=== PATIENT | female | born 1990 | race American Indian/Alaskan Native ===

== ENCOUNTER 2020-06-14 13:03 | Inpatient (IN) | payer BC, OTHER ==
[2020-06-14] MEDS ORDERED: SODIUM CHLORIDE 0.9% 1000 ML 1,000 ML ONE (13:14)
[2020-06-14] MEDS ORDERED: SODIUM CHLORIDE 0.9% 1000 ML 1,000 ML IV ONE ×3 (13:15→14:34)
--- NOTE | 2020-06-14 13:20 | Emergency Department Report ---
ED General Adult HPI - General Chief complaint: Altered Mental Status Stated complaint: AMS Time Seen by Provider: 06/14/20 13:15 Source: EMS Mode of arrival: Stretcher Limitations: Altered Mental Status - History of Present Illness Initial comments: Patient is a 30-year-old female who presents somnolent and unable to contribute to history secondary to clinical status. Per medics, patient has been feeling unwell times several days, was evaluated at [facility] and told she had diabetes (patient did not have history of same). Patient significant other reported patient to be less responsive today and called ambulance who noted patient to be hyperglycemic. Patient arrives in severe distress, with altered mental status, consequently requiring my immediate attention. - Related Data Allergies Allergy/AdvReac Type Severity Reaction Status Date / Time No Known Allergies Allergy Unverified 06/14/20 13:54 ED Review of Systems ROS: Stated complaint: AMS Other details as noted in HPI Comment: Unobtainable due to pts medical conditions ED Past Medical Hx - Past Medical History Previous Medical History?: Yes Hx Diabetes: Yes Hx Asthma: Yes ED Physical Exam - General Limitations: Altered Mental Status General appearance: in distress - Eye Eye exam: Present: normal appearance - ENT ENT exam: Present: mucous membranes dry - Neck Neck exam: Present: normal inspection - Respiratory Respiratory exam: Present: normal lung sounds bilaterally - Cardiovascular Cardiovascular Exam: Present: tachycardia - GI/Abdominal GI/Abdominal exam: Present: soft. Absent: tenderness - Rectal Rectal exam: Present: deferred - Extremities Exam Extremities exam: Present: normal inspection - Neurological Exam Neurological exam: Present: altered, other (Somnolent). Absent: alert - Psychiatric Psychiatric exam: Present: other (Somnolent) - Skin Skin exam: Present: dry ED Course Vital Signs 06/14/20 06/14/20 13:14 14:24 Temperature 97.5 F L Pulse Rate 99 H Respiratory 14 Rate Blood Pressure 101/55 [Right] O2 Sat by Pulse 97 Oximetry - Reevaluation(s) Reevaluation #1: 06/14/20 13:20 Patient initially treated with IV normal saline 2 L x 1 Reevaluation #2: 06/14/20 15:27 Patient reevaluated following 2 L IV normal saline, still somnolent, however, significantly more alert, now awake able to give history. Patient remains hyperglycemic with unreadable high value on blood glucose monitor, given additional 1 L IV normal saline x1, insulin regular 10 units IV x1. Reevaluation #3: 06/14/20 16:44 BG again noted to be "HI," given additional IV regular insulin 10U. IV insulin drip ordered by admitting physician. ED Medical Decision Making - Lab Data Result diagrams: 06/14/20 13:17 06/14/20 15:43 Labs 06/14/20 06/14/20 06/14/20 13:13 13:13 13:13 WBC RBC Hgb Hct MCV MCH MCHC RDW Plt Count Lymph % (Auto) [place] % (Auto) Eos % (Auto) Baso % (Auto) Lymph # (Auto) [place] # (Auto) Eos # (Auto) Baso # (Auto) Seg Neutrophils % Seg Neutrophils # VBG pH Lactic Acid 2.40 H* Magnesium Lipase TSH 2.720 Salicylates < 0.3 L Acetaminophen Plasma/Serum Alcohol 06/14/20 06/14/20 06/14/20 13:13 13:13 13:13 WBC RBC Hgb Hct MCV MCH MCHC RDW Plt Count Lymph % (Auto) [place] % (Auto) Eos % (Auto) Baso % (Auto) Lymph # (Auto) [place] # (Auto) Eos # (Auto) Baso # (Auto) Seg Neutrophils % Seg Neutrophils # VBG pH 7.125 L* Lactic Acid Magnesium Lipase TSH Salicylates Acetaminophen 5.0 L Plasma/Serum Alcohol < 0.01 06/14/20 06/14/20 13:13 13:17 WBC 10.3 RBC 4.77 Hgb 13.9 Hct 54.3 H MCV 114 H MCH 29 MCHC 26 L RDW 15.6 H Plt Count 389 Lymph % (Auto) 6.8 L [place] % (Auto) 12.6 H Eos % (Auto) 0.0 Baso % (Auto) 0.2 Lymph # (Auto) 0.7 L [place] # (Auto) 1.3 H Eos # (Auto) 0.0 Baso # (Auto) 0.0 Seg Neutrophils % 80.4 H Seg Neutrophils # 8.3 H VBG pH Lactic Acid Magnesium 3.60 H Lipase 35 TSH Salicylates Acetaminophen Plasma/Serum Alcohol Vital Signs 06/14/20 06/14/20 13:14 14:24 Temperature 97.5 F L Pulse Rate 99 H Respiratory 14 Rate Blood Pressure 101/55 [Right] O2 Sat by Pulse 97 Oximetry Labs 06/14/20 06/14/20 06/14/20 13:13 13:13 13:13 WBC RBC Hgb Hct MCV MCH MCHC RDW Plt Count Lymph % (Auto) [place] % (Auto) Eos % (Auto) Baso % (Auto) Lymph # (Auto) [place] # (Auto) Eos # (Auto) Baso # (Auto) Seg Neutrophils % Seg Neutrophils # VBG pH Lactic Acid 2.40 H* Magnesium Lipase TSH 2.720 Salicylates < 0.3 L Acetaminophen Plasma/Serum Alcohol 06/14/20 06/14/20 06/14/20 13:13 13:13 13:13 WBC RBC Hgb Hct MCV MCH MCHC RDW Plt Count Lymph % (Auto) [place] % (Auto) Eos % (Auto) Baso % (Auto) Lymph # (Auto) [place] # (Auto) Eos # (Auto) Baso # (Auto) Seg Neutrophils % Seg Neutrophils # VBG pH 7.125 L* Lactic Acid Magnesium Lipase TSH Salicylates Acetaminophen 5.0 L Plasma/Serum Alcohol < 0.01 06/14/20 06/14/20 13:13 13:17 WBC 10.3 RBC 4.77 Hgb 13.9 Hct 54.3 H MCV 114 H MCH 29 MCHC 26 L RDW 15.6 H Plt Count 389 Lymph % (Auto) 6.8 L [place] % (Auto) 12.6 H Eos % (Auto) 0.0 Baso % (Auto) 0.2 Lymph # (Auto) 0.7 L [place] # (Auto) 1.3 H Eos # (Auto) 0.0 Baso # (Auto) 0.0 Seg Neutrophils % 80.4 H Seg Neutrophils # 8.3 H VBG pH Lactic Acid Magnesium 3.60 H Lipase 35 TSH Salicylates Acetaminophen Plasma/Serum Alcohol - EKG Data -: EKG Interpreted by Me (Sinus rhythm at 94, no ST-T changes, nonspecific IVCD) - Radiology Data Radiology results: report reviewed Findings [facility] [address] [place] [address] XRay Report Signed Patient: MARLEY MINOR MR#: [id number] : 1990 Acct:[id number] Age/Sex: 30 / F ADM Date: 06/14/20 Loc: CC1 [id number]: ROMARIO ROBLES MD Ordering Physician: YARA MEJIA MD Date of Service: 06/14/20 Procedure(s): XR chest 1V ap Accession Number(s): [id number] cc: YARA MEJIA MD Fluoro Time In Minutes: CHEST 1 VIEW 06/14/2020 3:26 PM INDICATION / CLINICAL INFORMATION: weakness. COMPARISON: None available. FINDINGS: SUPPORT DEVICES: None. HEART / MEDIASTINUM: No significant abnormality. LUNGS / PLEURA: Clear lungs. No significant pleural effusion. No pneumothorax. ADDITIONAL FINDINGS: No significant additional findings. IMPRESSION: 1. No acute abnormality of the chest. Signer Name: Perry Vincent MD Signed: 06/14/2020 4:29 PM Workstation Name: [id number] Transcribed By: YOANA Dictated By: Perry Vincent MD Electronically Authenticated By: Perry Vincent MD Signed Date/Time: 06/14/201628 DD/ 28 TD/TT: Critical Care Time: Yes Critical care time in (mins) excluding proc time.: 35 (Admitted to ICU) Critical care attestation.: If time is entered above; I have spent that time in minutes in the direct care of this critically ill patient, excluding procedure time. ED Disposition Clinical Impression: DKA (diabetic ketoacidosis) Disposition: OP ADMIT IP TO THIS HOSP Is pt being admited?: Yes Condition: Good
[2020-06-14 13:38] LABS: Basophils % (Auto) 0.2 % (0.0-1.8); Lymphocytes # (Auto) 0.7 K/mm3 (1.2-5.4); Lymphocytes % (Auto) 6.8 % (13.4-35.0); Mean Corpuscular HGB Conc 26 % (30-34); Monocytes # (Auto) 1.3 K/mm3 (0.0-0.8); Monocytes % (Auto) 12.6 % (0.0-7.3); Platelet Count 389 K/mm3 (140-440); Red Blood Count 4.77 M/mm3 (3.65-5.03); Red Cell Distribution Width 15.6 % (13.2-15.2)
[2020-06-14 13:41] LABS: Hemoglobin 13.9 gm/dl (10.1-14.3)
[2020-06-14 13:42] LABS: Hematocrit 54.3 % (30.3-42.9); Mean Corpuscular Volume 114 fl (79-97)
[2020-06-14] MEDS ORDERED: INSULIN REGULAR, HUMAN 100 UNITS/1 ML IV ONE ×2 (14:34→16:39)
[2020-06-14] MEDS ORDERED: DEXTROSE 50% IN WATER (25GM) 50 ML SYRINGE IV PRN (15:47)
[2020-06-14] MEDS ORDERED: MORPHINE 2 MG/1 ML INJ IV PRN (15:47)
[2020-06-14] MEDS ORDERED: D5W/0.45% NACL/KCL 20 MEQ 20 MEQ/1,000 ML BAG IV SCH (16:00)
--- NOTE | 2020-06-14 16:06 | History and Physical Report ---
History of Present Illness Date of examination: 06/14/20 Date of admission: 06/14/20 14:32 Chief complaint: Altered mental status History of present illness: 30-year-old -[place] female with significant past medical history of asthma brought into the emergency room today via EMS for altered mental status. Patient was said to be at [facility] where she had gone for evaluation because she was not feeling well over the past several days, she was found to be less responsive today and therefore EMS was called. Blood sugar done after was found to be elevated. She denies any history of diabetes mellitus. She was quite somnolent upon arrival in the emergency room. Work-up reveals that patient is in DKA. Liver enzymes and lipid profile were also abnormally elevated. She became more alert and oriented upon administration of IV fluid and insulin drip. Past History Past Medical History: other (Asthma) Past Surgical History: No surgical history Social history: no significant social history Family history: no significant family history Medications and Allergies Allergies Allergy/AdvReac Type Severity Reaction Status Date / Time No Known Allergies Allergy Unverified 06/14/20 13:54 Home Medications Medication Instructions Recorded Confirmed Last Taken Type Albuterol Mdi (or & Nicu Only) 2 puff PO Q6HR PRN 06/14/20 06/14/20 Unknown History [ProAir HFA Inhaler] Fluticasone/Vilanterol [Breo 1 puff INHALATION QDAY 06/14/20 06/14/20 Unknown History Ellipta 200-25 Mcg INH] HYDROcodone/ACETAMINOPHEN 1 each PO Q8HR PRN 06/14/20 06/14/20 Unknown History [Hydrocodone-Acetamin 7.5-300] Active Meds: Active Medications Dextrose (Dextrose 50% In Water (25gm) 50 Ml Syringe) 0 ml IV Q30MIN PRN; Protocol PRN Reason: Hypoglycemia Enoxaparin Sodium (Enoxaparin 40 Mg/0.4 Ml Inj) 40 mg SUB-Q QDAY@2200 ARMAND; Protocol Insulin Human Regular 100 (units/ Sodium Chloride) 100 mls @ 1 mls/hr IV TITR ARMAND; Protocol Sodium Chloride (Nacl 0.9% 1000 Ml) 1,000 mls @ 150 mls/hr IV DIRECT ARMAND Potassium Chloride/Dextrose/Sod Cl (D5w/0.45% Nacl/Kcl 20 Meq) 20 meq in 1,000 mls @ 125 mls/hr IV DIRECT ARMAND Morphine Sulfate (Morphine 2 Mg/1 Ml Inj) 2 mg IV Q4H PRN PRN Reason: Pain, Moderate (4-6) Ondansetron HCl (Ondansetron 4 Mg/2 Ml Inj) 4 mg IV Q8H PRN PRN Reason: Nausea And Vomiting Sodium Chloride (Sodium Chloride 0.9% 10 Ml Flush Syringe) 10 ml IV BID ARMAND Sodium Chloride (Sodium Chloride 0.9% 10 Ml Flush Syringe) 10 ml IV PRN PRN PRN Reason: LINE FLUSH Review of Systems Constitutional: lethargy, no fever, no chills Ears, nose, mouth and throat: no nasal congestion, no sore throat Cardiovascular: no chest pain, no palpitations Respiratory: no cough, no shortness of breath Gastrointestinal: no abdominal pain, no nausea, no vomiting, no diarrhea Genitourinary Female: no flank pain, no dysuria, no hematuria Musculoskeletal: no neck pain, no low back pain Integumentary: no rash, no pruritis Neurological: no headaches, no confusion Psychiatric: no anxiety, no depression Endocrine: no polyphagia, no polydipsia, no polyuria, no nocturia, no weight change Exam - Constitutional Vitals: Temp Pulse Resp BP Pulse Ox 97.5 F L 99 H 14 101/55 97 06/14/20 14:24 06/14/20 13:14 06/14/20 13:14 06/14/20 13:14 06/14/20 13:14 General appearance: Present: no acute distress, well-nourished, obese - EENT Eyes: Present: PERRL, EOM intact. Absent: scleral icterus ENT: hearing intact, clear oral mucosa, dentition normal - Neck Neck: Present: supple, normal ROM - Respiratory Respiratory effort: normal Respiratory: bilateral: CTA - Cardiovascular Rhythm: regular Heart Sounds: Present: S1 & S2. Absent: gallop, systolic murmur, diastolic murmur, rub, click - Extremities Extremities: no ischemia, pulses intact, pulses symmetrical, No edema, Full ROM Peripheral Pulses: within normal limits - Abdominal General gastrointestinal: Present: soft, non-tender, non-distended, normal bowel sounds. Absent: mass - Integumentary Integumentary: Present: clear, warm, dry. Absent: rash - Musculoskeletal Musculoskeletal: strength equal bilaterally - Psychiatric Psychiatric: appropriate mood/affect, intact judgment & insight, memory intact, cooperative - Neurologic Neurologic: CNII-XII intact, no focal deficits, moves all extremities Results - Labs CBC & Chem 7: 06/14/20 13:17 06/14/20 15:43 Labs: Abnormal lab results 06/14/20 06/14/20 06/14/20 Range/Units 13:13 13:13 13:13 Hct (30.3-42.9) % MCV (79-97) fl MCHC (30-34) % RDW (13.2-15.2) % Lymph % (Auto) (13.4-35.0) % [place] % (Auto) (0.0-7.3) % Lymph # (Auto) (1.2-5.4) K/mm3 [place] # (Auto) (0.0-0.8) K/mm3 Seg Neutrophils % (40.0-70.0) % Seg Neutrophils # (1.8-7.7) K/mm3 VBG pH (7.320-7.420) Lactic Acid 2.40 H* (0.7-2.0) mmol/L Magnesium (1.7-2.3) mg/dL Salicylates < 0.3 L (2.8-20.0) mg/dL Acetaminophen 5.0 L (10.0-30.0) ug/mL 06/14/20 06/14/20 06/14/20 Range/Units 13:13 13:13 13:17 Hct 54.3 H (30.3-42.9) % MCV 114 H (79-97) fl MCHC 26 L (30-34) % RDW 15.6 H (13.2-15.2) % Lymph % (Auto) 6.8 L (13.4-35.0) % [place] % (Auto) 12.6 H (0.0-7.3) % Lymph # (Auto) 0.7 L (1.2-5.4) K/mm3 [place] # (Auto) 1.3 H (0.0-0.8) K/mm3 Seg Neutrophils % 80.4 H (40.0-70.0) % Seg Neutrophils # 8.3 H (1.8-7.7) K/mm3 VBG pH 7.125 L* (7.320-7.420) Lactic Acid (0.7-2.0) mmol/L Magnesium 3.60 H (1.7-2.3) mg/dL Salicylates (2.8-20.0) mg/dL Acetaminophen (10.0-30.0) ug/mL Assessment and Plan - Patient Problems (1) DKA (diabetic ketoacidosis) Current Visit: Yes Status: Acute Plan to address problem: Patient started on insulin drip and IV fluids according to protocol. We will monitor blood glucose closely. Dietary consult also placed for evaluation. We will check hemoglobin A1c. (2) Elevated liver enzymes Current Visit: Yes Status: Acute Plan to address problem: Consult placed to gastroenterology for evaluation. We will monitor liver enzymes. (3) Dyslipidemia Current Visit: Yes Status: Acute Plan to address problem: We will monitor lipid profile. We will commence patient on statin once able to tolerate p.o. intake. (4) DVT prophylaxis Current Visit: Yes Status: Acute Plan to address problem: Patient placed on subcutaneous Lovenox. (5) Full code status Current Visit: Yes Status: Acute Plan to address problem: Patient is a full code.
[2020-06-14 16:17] LABS: Alanine Aminotransferase 104 units/L (7-56); Albumin 4.4 g/dL (3.9-5); BUN/Creatinine Ratio 18; Blood Urea Nitrogen 42 mg/dL (7-17); Calcium 8.7 mg/dL (8.4-10.2); Hemolysis Index 16
--- NOTE | 2020-06-14 16:33 | XRay Report ---
CHEST 1 VIEW 06/14/2020 3:26 PM INDICATION / CLINICAL INFORMATION: weakness. COMPARISON: None available. FINDINGS: SUPPORT DEVICES: None. HEART / MEDIASTINUM: No significant abnormality. LUNGS / PLEURA: Clear lungs. No significant pleural effusion. No pneumothorax. ADDITIONAL FINDINGS: No significant additional findings. IMPRESSION: 1. No acute abnormality of the chest. Signer Name: Perry Vincent MD Signed: 06/14/2020 4:29 PM Workstation Name: [id number]
[2020-06-14] MEDS: INSULIN REGULAR, HUMAN 100 UNITS in SODIUM CHLORIDE 0.9% 99 ML IV SCH ×2 (16:49→23:10)
[2020-06-14 17:17] LABS: Chol/HDL Ratio 4.74 %
[2020-06-14] MEDS: SODIUM CHLORIDE 0.9% 1000 ML 1,000 ML IV SCH (18:35)
[2020-06-14 19:56] LABS: Bilirubin,Urine NEG (Negative); Blood,Urine MOD (Negative); Color,Urine Straw (Yellow); Mucus,Urine FEW /HPF; RBC,Urine < 1.0 /HPF (0.0-6.0); Urobilinogen,Urine < 2.0 mg/dL (<2.0); WBC,Urine < 1.0 /HPF (0.0-6.0)
[2020-06-14 20:00] LABS: Calcium 9.2 mg/dL (8.4-10.2)
[2020-06-14 20:02] LABS: HCG Qualitative,Urine Negative (Negative)
[2020-06-14 20:04] LABS: Amphetamine Screen,Urine PRESUMPTIVE NEGATIVE; Benzodiazepines Screen,Urine PRESUMPTIVE NEGATIVE; Cannabinoid Screen,Urine PRESUMPTIVE NEGATIVE; Cocaine Screen,Urine PRESUMPTIVE NEGATIVE; Methadone Screen,Urine PRESUMPTIVE NEGATIVE; Opiate Screen,Urine PRESUMPTIVE NEGATIVE
[2020-06-14 20:23] LABS: Hepatitis B Surface Antigen Non-Reactive (Negative); Hepatitis C Virus Antibody Non-Reactive (NonReactive)
[2020-06-14] MEDS: ENOXAPARIN 40 MG/0.4 ML INJ SUB-Q SCH (21:06)
[2020-06-15 00:10] LABS: Calcium 9.5 mg/dL (8.4-10.2)
[2020-06-15] MEDS: SODIUM CHLORIDE 0.9% 1000 ML 1,000 ML IV SCH (00:50)
[2020-06-15] MEDS: INSULIN REGULAR, HUMAN 100 UNITS in SODIUM CHLORIDE 0.9% 99 ML IV SCH ×2 (02:17→05:30)
[2020-06-15 06:07] LABS: Alanine Aminotransferase 99 units/L (7-56); Albumin 4.5 g/dL (3.9-5)
[2020-06-15 06:10] LABS: Bilirubin,Direct < 0.2 mg/dL (0-0.2)
[2020-06-15 09:19] LABS: Calcium 9.7 mg/dL (8.4-10.2)
[2020-06-15] MEDS ORDERED: INSULIN GLARGINE 100 UNITS/ML SUB-Q ONE (11:00)
[2020-06-15] MEDS: INSULIN LISPRO 100 UNIT/ML SUB-Q SCH ×3 (12:17→21:58)
--- NOTE | 2020-06-15 12:59 | Ultrasound Report ---
ULTRASOUND ABDOMEN, LIMITED (RIGHT UPPER QUADRANT) INDICATION / CLINICAL INFORMATION: elevated liver enzymes.. COMPARISON: None available. FINDINGS: PANCREAS: Not well visualized. Visualized portion shows no significant abnormality. LIVER: The liver measures 18.5 cm in length and demonstrates diffusely increased echogenicity with so mewhat heterogeneous echotexture. No focal hepatic lesion. GALLBLADDER: No significant abnormality. BILE DUCTS: No significant abnormality. Common bile duct measures 4 mm. Right kidney: The right kidney measures 10.6 cm in length and is normal in echogenicity. FREE FLUID: None. ADDITIONAL FINDINGS: None. IMPRESSION: 1. Heterogeneous hepatic echotexture can be seen with hepatocellular processes such as hepatitis. Cor relation with hepatitis serologies is recommended. Alternatively, findings could represent severe hep atic steatosis. Signer Name: Christopher Chaidez MD Signed: 06/15/2020 12:54 PM Workstation Name: [id number]
[2020-06-15] MEDS: ONDANSETRON 4 MG/2 ML INJ IV PRN (13:07)
[2020-06-15 16:16] LABS: Calcium 8.8 mg/dL (8.4-10.2)
--- NOTE | 2020-06-15 18:55 | Progress Note ---
Assessment and Plan Assessment and plan: 30-year-old -Maced[place] female who presents with altered mental status in the context of DKA Plan: Diabetic ketoacidosis DKA protocol initiated, insulin drip, fluids Patient in the ICU, anion gap is closed, patient to be transferred to the floor Diabetic diet Subcu insulin Patient will need insulin at the time of discharge. Diabetes mellitus type 2, with hyperglycemia, not insulin-dependent new diagnosis A1c is 15.6. Currently on long and short acting insulin. Elevated LFTs Gastroenterology consulted Abdominal ultrasound showing hepatocellular process such as hepatitis. Possibly severe hepatic steatosis. Most likely secondary to obesity. Hepatitis panel negative Dyslipidemia Statin Hyponatremia Continue fluids Morbid obesity Lifestyle change Hyperkalemia secondary to DKA Fluids Resolved CODE STATUS: Full History Interval history: Patient seen and examined, patient states that she is thirsty, spoke with the nurse at the bedside, patient is doing well, blood glucose is resolved, labs checked, gap is closed, transfer to telemetry. Continue to manage patient's blood glucose with subcu insulin. Patient may need additional units of insulin since she is eating now. Hospitalist Physical - Physical exam Narrative exam: General appearance: Present: Obese, no acute distress, well-nourished - EENT Eyes: Present: PERRL, EOM intact ENT: hearing intact, clear oral mucosa - Respiratory Respiratory effort: normal Respiratory: bilateral: CTA, negative: rales, rhonchi, wheezing - Cardiovascular Rhythm: regular Heart Sounds: Present: S1 & S2. Absent: rub, click - Extremities Extremities: no ischemia, No edema, normal temperature, normal color, Full ROM - Abdominal General gastrointestinal: soft, non-tender, non-distended, normal bowel sounds - Integumentary Integumentary: Present: clear, warm, dry, normal turgor - Neurologic Neurologic: CNII-XII intact, no focal deficits, moves all extremities, no confusion - Constitutional Vitals: Temp Pulse Resp BP Pulse Ox 98.6 F 120 H 18 152/86 92 06/15/20 18:38 06/15/20 18:00 06/15/20 18:00 06/15/20 18:00 06/15/20 18:00 HEART Score - HEART Score Troponin: Troponin T < 0.010 ng/mL (0.00-0.029) 06/14/20 15:43 Results - Labs CBC & Chem 7: 06/14/20 13:17 06/15/20 15:52 Labs: Laboratory Last Values WBC 10.3 K/mm3 (4.5-11.0) 06/14/20 13:17 RBC 4.77 M/mm3 (3.65-5.03) 06/14/20 13:17 Hgb 13.9 gm/dl (10.1-14.3) 06/14/20 13:17 Hct 54.3 % (30.3-42.9) H 06/14/20 13:17 MCV 114 fl (79-97) H 06/14/20 13:17 MCH 29 pg (28-32) 06/14/20 13:17 MCHC 26 % (30-34) L 06/14/20 13:17 RDW 15.6 % (13.2-15.2) H 06/14/20 13:17 Plt Count 389 K/mm3 (140-440) 06/14/20 13:17 Lymph % (Auto) 6.8 % (13.4-35.0) L 06/14/20 13:17 [place] % (Auto) 12.6 % (0.0-7.3) H 06/14/20 13:17 Eos % (Auto) 0.0 % (0.0-4.3) 06/14/20 13:17 Baso % (Auto) 0.2 % (0.0-1.8) 06/14/20 13:17 Lymph # (Auto) 0.7 K/mm3 (1.2-5.4) L 06/14/20 13:17 [place] # (Auto) 1.3 K/mm3 (0.0-0.8) H 06/14/20 13:17 Eos # (Auto) 0.0 K/mm3 (0.0-0.4) 06/14/20 13:17 Baso # (Auto) 0.0 K/mm3 (0.0-0.1) 06/14/20 13:17 Seg Neutrophils % 80.4 % (40.0-70.0) H 06/14/20 13:17 Seg Neutrophils # 8.3 K/mm3 (1.8-7.7) H 06/14/20 13:17 VBG pH 7.125 (7.320-7.420) L* 06/14/20 13:13 Sodium 151 mmol/L (137-145) H 06/15/20 15:52 Potassium 4.8 mmol/L (3.6-5.0) 06/15/20 15:52 Chloride 115.3 mmol/L (98-107) H 06/15/20 15:52 Carbon Dioxide 20 mmol/L (22-30) L D 06/15/20 15:52 Anion Gap 21 mmol/L 06/15/20 15:52 BUN 25 mg/dL (7-17) H 06/15/20 15:52 Creatinine 1.4 mg/dL (0.6-1.2) H 06/15/20 15:52 Estimated GFR 54 ml/min 06/15/20 15:52 BUN/Creatinine Ratio 18 % 06/15/20 15:52 Glucose 432 mg/dL (65-100) H 06/15/20 15:52 POC Glucose 392 mg/dL (70-105) H 06/15/20 17:17 Hemoglobin A1c 15.6 % (4-6) H 06/14/20 16:36 Lactic Acid 1.90 mmol/L (0.7-2.0) 06/14/20 15:43 Calcium 8.8 mg/dL (8.4-10.2) 06/15/20 15:52 Phosphorus 3.60 mg/dL (2.5-4.5) 06/14/20 15:43 Magnesium 3.20 mg/dL (1.7-2.3) H 06/14/20 15:43 Total Bilirubin 0.30 mg/dL (0.1-1.2) 06/15/20 05:09 Direct Bilirubin < 0.2 mg/dL (0-0.2) 06/15/20 05:09 Indirect Bilirubin 0.1 mg/dL 06/15/20 05:09 AST 57 units/L (5-40) H 06/15/20 05:09 ALT 99 units/L (7-56) H 06/15/20 05:09 Alkaline Phosphatase 154 units/L (35-129) H 06/15/20 05:09 Troponin T < 0.010 ng/mL (0.00-0.029) 06/14/20 15:43 Total Protein 8.9 g/dL (6.3-8.2) H 06/15/20 05:09 Albumin 4.5 g/dL (3.9-5) 06/15/20 05:09 Albumin/Globulin Ratio 1.0 % 06/15/20 05:09 Triglycerides 287 mg/dL (2-149) H 06/14/20 15:43 Cholesterol 237 mg/dL (50-199) H 06/14/20 15:43 LDL Cholesterol Direct 171 mg/dL (50-130) H 06/14/20 15:43 HDL Cholesterol 50 mg/dL (40-59) 06/14/20 15:43 Cholesterol/HDL Ratio 4.74 % 06/14/20 15:43 Lipase 35 units/L (13-60) 06/14/20 13:13 TSH 2.720 mlU/mL (0.270-4.200) 06/14/20 13:13 HCG, Qual Negative (Negative) 06/14/20 15:43 Urine Color Straw (Yellow) 06/14/20 Unknown Urine Turbidity Clear (Clear) 06/14/20 Unknown Urine pH 5.0 (5.0-7.0) 06/14/20 Unknown Ur Specific [place] 1.023 (1.003-1.030) 06/14/20 Unknown Urine Protein 30 mg/dl mg/dL (Negative) 06/14/20 Unknown Urine Glucose (UA) >=500 mg/dL (Negative) 06/14/20 Unknown Urine Ketones 20 mg/dL (Negative) 06/14/20 Unknown Urine Blood Mod (Negative) 06/14/20 Unknown Urine Nitrite Neg (Negative) 06/14/20 Unknown Urine Bilirubin Neg (Negative) 06/14/20 Unknown Urine Urobilinogen < 2.0 mg/dL (<2.0) 06/14/20 Unknown Ur Leukocyte Esterase Neg (Negative) 06/14/20 Unknown Urine WBC (Auto) < 1.0 /HPF (0.0-6.0) 06/14/20 Unknown Urine RBC (Auto) < 1.0 /HPF (0.0-6.0) 06/14/20 Unknown Urine Mucus Few /HPF 06/14/20 Unknown Urine HCG, Qual Negative (Negative) 06/14/20 Unknown Salicylates < 0.3 mg/dL (2.8-20.0) L 06/14/20 13:13 Urine Opiates Screen Presumptive negative 06/14/20 Unknown Urine Methadone Screen Presumptive negative 06/14/20 Unknown Acetaminophen 5.0 ug/mL (10.0-30.0) L 06/14/20 13:13 Ur Barbiturates Screen Presumptive negative 06/14/20 Unknown Ur Phencyclidine Scrn Presumptive negative 06/14/20 Unknown Ur Amphetamines Screen Presumptive negative 06/14/20 Unknown U Benzodiazepines Scrn Presumptive negative 06/14/20 Unknown Urine Cocaine Screen Presumptive negative 06/14/20 Unknown U Marijuana (THC) Screen Presumptive negative 06/14/20 Unknown Drugs of Abuse Note Disclamer 06/14/20 Unknown Plasma/Serum Alcohol < 0.01 % (0-0.07) 06/14/20 13:13 Hepatitis A IgM Ab Non-reactive (NonReactive) 06/14/20 15:43 Hep Bs Antigen Non-reactive (Negative) 06/14/20 15:43 Hep B Core IgM Ab Non-reactive (NonReactive) 06/14/20 15:43 Hepatitis C Antibody Non-reactive (NonReactive) 06/14/20 15:43 Ramirez/IV: Voiding Method Incontinent IV Catheter Type [Left Hand] Peripheral IV IV Catheter Type [Right INT / Saline Lock Antecubital] Active Medications - Current Medications Current Medications: Generic Name Dose Route Start Last Admin Trade Name Freq PRN Reason Stop Dose Admin Dextrose 0 ml 06/14/20 15:47 Dextrose 50% In Water (25gm) 50 Ml Syringe IV Q30MIN PRN Hypoglycemia Protocol Enoxaparin Sodium 40 mg 06/14/20 22:00 06/14/20 21:06 Enoxaparin 40 Mg/0.4 Ml Inj SUB-Q 40 mg QDAY@2200 [facility] Administration Protocol Sodium Chloride 1,000 mls @ 150 mls/hr 06/14/20 16:00 06/15/20 05:08 Nacl 0.9% 1000 Ml IV 0 mls/hr DIRECT ARMAND Infusion Insulin Glargine 15 units 06/15/20 22:00 Insulin Glargine 100 Units/Ml SUB-Q QHS ARMAND Insulin Human Lispro 0 unit 06/15/20 11:30 06/15/20 16:51 Insulin Lispro 100 Unit/Ml SUB-Q 8 unit ACHS [facility] Administration Protocol Morphine Sulfate 2 mg 06/14/20 15:47 Morphine 2 Mg/1 Ml Inj IV Q4H PRN Pain, Moderate (4-6) Ondansetron HCl 4 mg 06/14/20 15:47 06/15/20 13:07 Ondansetron 4 Mg/2 Ml Inj IV 4 mg Q8H PRN Administration Nausea And Vomiting Sodium Chloride 10 ml 06/14/20 22:00 06/15/20 11:26 Sodium Chloride 0.9% 10 Ml Flush Syringe IV 10 ml BID ARMAND Administration Sodium Chloride 10 ml 06/14/20 15:47 Sodium Chloride 0.9% 10 Ml Flush Syringe IV PRN PRN LINE FLUSH Nutrition/Malnutrition Assess - Dietary Evaluation Nutrition/Malnutrition Findings: Nutrition Notes Start: 06/15/20 13:21 Freq: Status: Active Protocol: Document 06/15/20 13:55 AT (Rec: 06/15/20 14:08 AT [email or web address]) Co-Sign 06/15/20 13:55 NHALL Nutrition Notes Need for Assessment generated from: MD Order Initial or Follow up Brief Note Current Diagnosis Diabetes Other Pertinent Diagnosis DKA Current Diet Consistent CHO Subjective/Other Information MD consult for diet education. Pt showed readiness, but then ended session due to increased thirst. Senior Graphic Designer told pt how to contact nutrition staff. Will follow up for confirmation of understanding. #1 Nutrition Diagnosis Food and nutrition-related knowledge deficit Etiology newly diagnosed DM As Evidenced by Signs and Symptoms pt admitted with DKA Nutrition Intervention Teaching Recipient Patient Learning Readiness Fair Teaching Methods Discussion,Handout Education Handouts Provided Carb Counting for Diabetes Patients Barriers to Learning Emotional RD phone number provided No Patient aware of follow up options Yes Goal #1 Adhere to Consistent CHO diet Goal #2 Improve blood sugar control Anticipated Discharge Needs: Consistent CHO Follow-Up By: 06/20/20 Additional Comments F/U for diet education needs
[2020-06-15] MEDS: ENOXAPARIN 40 MG/0.4 ML INJ SUB-Q SCH (21:58)
[2020-06-15] MEDS ORDERED: INSULIN GLARGINE 100 UNITS/ML SUB-Q SCH (22:00)
[2020-06-15] MEDS ORDERED: INSULIN LISPRO 100 UNIT/ML SUB-Q ONE (23:09)
[2020-06-16 06:00] LABS: Albumin 3.9 g/dL (3.9-5); Calcium 9.2 mg/dL (8.4-10.2)
[2020-06-16] MEDS ORDERED: INSULIN NPH/REGULAR 70/30 INJ SUB-Q SCH (08:19)
[2020-06-16] MEDS: INSULIN LISPRO 100 UNIT/ML SUB-Q SCH ×3 (10:39→18:17)
[2020-06-16] MEDS ORDERED: SODIUM CHLORIDE 0.9% 1000 ML 1,000 ML IV ONE (18:09)
--- NOTE | 2020-06-16 18:15 | Progress Note ---
Assessment and Plan Assessment and plan: 30-year-old -[place] female who presents with altered mental status in the context of DKA Plan: Diabetic ketoacidosis DKA protocol initiated, insulin drip, fluids Diabetic diet Subcu insulin Patient will need insulin at the time of discharge. Diabetes mellitus type 2, with hyperglycemia, not insulin-dependent new diagnosis A1c is 15.6. Making adjustments to insulin Acute kidney injury Could be the patient's baseline due to uncontrolled diabetes Fluids Elevated LFTs Gastroenterology consulted, no intervention required Abdominal ultrasound showing hepatocellular process such as hepatitis. Possibly severe hepatic steatosis. Most likely secondary to obesity. Hepatitis panel negative Dyslipidemia Statin Hyponatremia Continue fluids Morbid obesity Lifestyle change Hyperkalemia secondary to DKA Fluids Resolved CODE STATUS: Full History Interval history: Patient seen and examined, states that she is improved, no encephalopathy. Continues to be thirsty. Blood glucoses elevated, needs better control. Has some vomiting, is not able to keep food down. Hospitalist Physical - Physical exam Narrative exam: General appearance: Present: Obese, no acute distress, well-nourished - EENT Eyes: Present: PERRL, EOM intact ENT: hearing intact, clear oral mucosa - Respiratory Respiratory effort: normal Respiratory: bilateral: CTA, negative: rales, rhonchi, wheezing - Cardiovascular Rhythm: regular Heart Sounds: Present: S1 & S2. Absent: rub, click - Extremities Extremities: no ischemia, No edema, normal temperature, normal color, Full ROM - Abdominal General gastrointestinal: soft, non-tender, non-distended, normal bowel sounds - Integumentary Integumentary: Present: clear, warm, dry, normal turgor - Neurologic Neurologic: CNII-XII intact, no focal deficits, moves all extremities, no confusion - Constitutional Vitals: Temp Pulse Resp BP Pulse Ox 98.4 F 113 H 20 145/95 100 06/16/20 16:48 06/16/20 16:48 06/16/20 16:48 06/16/20 16:48 06/16/20 16:48 General appearance: Present: no acute distress, well-nourished, obese HEART Score - HEART Score Troponin: Troponin T < 0.010 ng/mL (0.00-0.029) 06/14/20 15:43 Results - Labs CBC & Chem 7: 06/14/20 13:17 06/16/20 04:36 Labs: Laboratory Last Values WBC 10.3 K/mm3 (4.5-11.0) 06/14/20 13:17 RBC 4.77 M/mm3 (3.65-5.03) 06/14/20 13:17 Hgb 13.9 gm/dl (10.1-14.3) 06/14/20 13:17 Hct 54.3 % (30.3-42.9) H 06/14/20 13:17 MCV 114 fl (79-97) H 06/14/20 13:17 MCH 29 pg (28-32) 06/14/20 13:17 MCHC 26 % (30-34) L 06/14/20 13:17 RDW 15.6 % (13.2-15.2) H 06/14/20 13:17 Plt Count 389 K/mm3 (140-440) 06/14/20 13:17 Lymph % (Auto) 6.8 % (13.4-35.0) L 06/14/20 13:17 [place] % (Auto) 12.6 % (0.0-7.3) H 06/14/20 13:17 Eos % (Auto) 0.0 % (0.0-4.3) 06/14/20 13:17 Baso % (Auto) 0.2 % (0.0-1.8) 06/14/20 13:17 Lymph # (Auto) 0.7 K/mm3 (1.2-5.4) L 06/14/20 13:17 [place] # (Auto) 1.3 K/mm3 (0.0-0.8) H 06/14/20 13:17 Eos # (Auto) 0.0 K/mm3 (0.0-0.4) 06/14/20 13:17 Baso # (Auto) 0.0 K/mm3 (0.0-0.1) 06/14/20 13:17 Seg Neutrophils % 80.4 % (40.0-70.0) H 06/14/20 13:17 Seg Neutrophils # 8.3 K/mm3 (1.8-7.7) H 06/14/20 13:17 VBG pH 7.125 (7.320-7.420) L* 06/14/20 13:13 Sodium 151 mmol/L (137-145) H 06/16/20 04:36 Potassium 4.1 mmol/L (3.6-5.0) 06/16/20 04:36 Chloride 110.7 mmol/L (98-107) H 06/16/20 04:36 Carbon Dioxide 23 mmol/L (22-30) 06/16/20 04:36 Anion Gap 21 mmol/L 06/16/20 04:36 BUN 19 mg/dL (7-17) H 06/16/20 04:36 Creatinine 1.4 mg/dL (0.6-1.2) H 06/16/20 04:36 Estimated GFR 54 ml/min 06/16/20 04:36 BUN/Creatinine Ratio 14 % 06/16/20 04:36 Glucose 420 mg/dL (65-100) H 06/16/20 04:36 POC Glucose 476 mg/dL (70-105) H 06/16/20 16:45 Hemoglobin A1c 15.6 % (4-6) H 06/14/20 16:36 Lactic Acid 1.90 mmol/L (0.7-2.0) 06/14/20 15:43 Calcium 9.2 mg/dL (8.4-10.2) 06/16/20 04:36 Phosphorus 3.60 mg/dL (2.5-4.5) 06/14/20 15:43 Magnesium 3.20 mg/dL (1.7-2.3) H 06/14/20 15:43 Total Bilirubin 0.30 mg/dL (0.1-1.2) 06/16/20 04:36 Direct Bilirubin < 0.2 mg/dL (0-0.2) 06/15/20 05:09 Indirect Bilirubin 0.1 mg/dL 06/15/20 05:09 AST 90 units/L (5-40) H 06/16/20 04:36 ALT 91 units/L (7-56) H 06/16/20 04:36 Alkaline Phosphatase 129 units/L (35-129) 06/16/20 04:36 Troponin T < 0.010 ng/mL (0.00-0.029) 06/14/20 15:43 Total Protein 7.7 g/dL (6.3-8.2) 06/16/20 04:36 Albumin 3.9 g/dL (3.9-5) 06/16/20 04:36 Albumin/Globulin Ratio 1.0 % 06/16/20 04:36 Triglycerides 287 mg/dL (2-149) H 06/14/20 15:43 Cholesterol 237 mg/dL (50-199) H 06/14/20 15:43 LDL Cholesterol Direct 171 mg/dL (50-130) H 06/14/20 15:43 HDL Cholesterol 50 mg/dL (40-59) 06/14/20 15:43 Cholesterol/HDL Ratio 4.74 % 06/14/20 15:43 Lipase 35 units/L (13-60) 06/14/20 13:13 TSH 2.720 mlU/mL (0.270-4.200) 06/14/20 13:13 HCG, Qual Negative (Negative) 06/14/20 15:43 Urine Color Straw (Yellow) 06/14/20 Unknown Urine Turbidity Clear (Clear) 06/14/20 Unknown Urine pH 5.0 (5.0-7.0) 06/14/20 Unknown Ur Specific [place] 1.023 (1.003-1.030) 06/14/20 Unknown Urine Protein 30 mg/dl mg/dL (Negative) 06/14/20 Unknown Urine Glucose (UA) >=500 mg/dL (Negative) 06/14/20 Unknown Urine Ketones 20 mg/dL (Negative) 06/14/20 Unknown Urine Blood Mod (Negative) 06/14/20 Unknown Urine Nitrite Neg (Negative) 06/14/20 Unknown Urine Bilirubin Neg (Negative) 06/14/20 Unknown Urine Urobilinogen < 2.0 mg/dL (<2.0) 06/14/20 Unknown Ur Leukocyte Esterase Neg (Negative) 06/14/20 Unknown Urine WBC (Auto) < 1.0 /HPF (0.0-6.0) 06/14/20 Unknown Urine RBC (Auto) < 1.0 /HPF (0.0-6.0) 06/14/20 Unknown Urine Mucus Few /HPF 06/14/20 Unknown Urine HCG, Qual Negative (Negative) 06/14/20 Unknown Salicylates < 0.3 mg/dL (2.8-20.0) L 06/14/20 13:13 Urine Opiates Screen Presumptive negative 06/14/20 Unknown Urine Methadone Screen Presumptive negative 06/14/20 Unknown Acetaminophen 5.0 ug/mL (10.0-30.0) L 06/14/20 13:13 Ur Barbiturates Screen Presumptive negative 06/14/20 Unknown Ur Phencyclidine Scrn Presumptive negative 06/14/20 Unknown Ur Amphetamines Screen Presumptive negative 06/14/20 Unknown U Benzodiazepines Scrn Presumptive negative 06/14/20 Unknown Urine Cocaine Screen Presumptive negative 06/14/20 Unknown U Marijuana (THC) Screen Presumptive negative 06/14/20 Unknown Drugs of Abuse Note Disclamer 06/14/20 Unknown Plasma/Serum Alcohol < 0.01 % (0-0.07) 06/14/20 13:13 Hepatitis A IgM Ab Non-reactive (NonReactive) 06/14/20 15:43 Hep Bs Antigen Non-reactive (Negative) 06/14/20 15:43 Hep B Core IgM Ab Non-reactive (NonReactive) 06/14/20 15:43 Hepatitis C Antibody Non-reactive (NonReactive) 06/14/20 15:43 Ramirez/IV: Voiding Method Toilet IV Catheter Type [Left Hand] Peripheral IV IV Catheter Type [Right INT / Saline Lock Antecubital] Active Medications - Current Medications Current Medications: Generic Name Dose Route Start Last Admin Trade Name Freq PRN Reason Stop Dose Admin Dextrose 0 ml 06/14/20 15:47 Dextrose 50% In Water (25gm) 50 Ml Syringe IV Q30MIN PRN Hypoglycemia Protocol Enoxaparin Sodium 40 mg 06/14/20 22:00 06/15/20 21:58 Enoxaparin 40 Mg/0.4 Ml Inj SUB-Q 40 mg QDAY@2200 [facility] Administration Protocol Sodium Chloride 1,000 mls @ 999 mls/hr 06/16/20 18:09 Nacl 0.9% 1000 Ml IV 06/16/20 19:09 BOLUS ONE Insulin Glargine 25 units 06/16/20 22:00 Insulin Glargine 100 Units/Ml SUB-Q QHS [facility] Insulin Human Lispro 12 unit 06/16/20 11:30 06/16/20 17:19 Insulin Lispro 100 Unit/Ml SUB-Q 12 unit AC [facility] Administration Morphine Sulfate 2 mg 06/14/20 15:47 Morphine 2 Mg/1 Ml Inj IV Q4H PRN Pain, Moderate (4-6) Ondansetron HCl 4 mg 06/14/20 15:47 06/15/20 13:07 Ondansetron 4 Mg/2 Ml Inj IV 4 mg Q8H PRN Administration Nausea And Vomiting Sodium Chloride 10 ml 06/14/20 15:47 Sodium Chloride 0.9% 10 Ml Flush Syringe IV PRN PRN LINE FLUSH Nutrition/Malnutrition Assess - Dietary Evaluation Nutrition/Malnutrition Findings: Nutrition Notes Start: 06/15/20 13:21 Freq: Status: Active Protocol: Document 06/15/20 13:55 AT (Rec: 06/15/20 14:08 AT [email or web address]) Co-Sign 06/15/20 13:55 NHALL Nutrition Notes Need for Assessment generated from: MD Order Initial or Follow up Brief Note Current Diagnosis Diabetes Other Pertinent Diagnosis DKA Current Diet Consistent CHO Subjective/Other Information MD consult for diet education. Pt showed readiness, but then ended session due to increased thirst. Sample Taker Operator told pt how to contact nutrition staff. Will follow up for confirmation of understanding. #1 Nutrition Diagnosis Food and nutrition-related knowledge deficit Etiology newly diagnosed DM As Evidenced by Signs and Symptoms pt admitted with DKA Nutrition Intervention Teaching Recipient Patient Learning Readiness Fair Teaching Methods Discussion,Handout Education Handouts Provided Carb Counting for Diabetes Patients Barriers to Learning Emotional RD phone number provided No Patient aware of follow up options Yes Goal #1 Adhere to Consistent CHO diet Goal #2 Improve blood sugar control Anticipated Discharge Needs: Consistent CHO Follow-Up By: 06/20/20 Additional Comments F/U for diet education needs
--- NOTE | 2020-06-16 18:40 | Consultation ---
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 Brought in initially with possible asthma exacerbation and confusion. Doing well now. No prior medical history except asthma. No EtOH. No known hx of liver disease, or family hx of liver disease. No abd pain, N/V, GI bleed, weight loss. Meds reviewed. Past History Past Medical History: other (Asthma) Past Surgical History: No surgical history Social history: no significant social history Family history: no significant family history Medications and Allergies Allergies Allergy/AdvReac Type Severity Reaction Status Date / Time No Known Allergies Allergy Unverified 06/14/20 13:54 Home Medications Medication Instructions Recorded Confirmed Last Taken Type Albuterol Mdi (or & Nicu Only) 2 puff PO Q6HR PRN 06/14/20 06/14/20 Unknown History [ProAir HFA Inhaler] Fluticasone/Vilanterol [Breo 1 puff INHALATION QDAY 06/14/20 06/14/20 Unknown History Ellipta 200-25 Mcg INH] HYDROcodone/ACETAMINOPHEN 1 each PO Q8HR PRN 06/14/20 06/14/20 Unknown History [Hydrocodone-Acetamin 7.5-300] Active Meds: Active Medications Dextrose (Dextrose 50% In Water (25gm) 50 Ml Syringe) 0 ml IV Q30MIN PRN; Protocol PRN Reason: Hypoglycemia Enoxaparin Sodium (Enoxaparin 40 Mg/0.4 Ml Inj) 40 mg SUB-Q QDAY@2200 [facility]; Protocol Last Admin: 06/15/20 21:58 Dose: 40 mg Documented by: Sodium Chloride (Nacl 0.9% 1000 Ml) 1,000 mls @ 100 mls/hr IV DIRECT [facility] Insulin Glargine (Insulin Glargine 100 Units/Ml) 25 units SUB-Q QHS [facility] Insulin Human Lispro (Insulin Lispro 100 Unit/Ml) 12 unit SUB-Q AC [facility] Last Admin: 06/16/20 17:19 Dose: 12 unit Documented by: Morphine Sulfate (Morphine 2 Mg/1 Ml Inj) 2 mg IV Q4H PRN PRN Reason: Pain, Moderate (4-6) Ondansetron HCl (Ondansetron 4 Mg/2 Ml Inj) 4 mg IV Q8H PRN PRN Reason: Nausea And Vomiting Last Admin: 06/15/20 13:07 Dose: 4 mg Documented by: Sodium Chloride (Sodium Chloride 0.9% 10 Ml Flush Syringe) 10 ml IV PRN PRN PRN Reason: LINE FLUSH Review of Systems All systems: negative (per HPI) Exam - Constitutional Vitals: Temp Pulse Resp BP Pulse Ox 98.4 F 113 H 20 145/95 100 06/16/20 16:48 06/16/20 16:48 06/16/20 16:48 06/16/20 16:48 06/16/20 16:48 General appearance: Present: no acute distress, obese - EENT Eyes: Present: PERRL, EOM intact ENT: hearing intact - Respiratory Respiratory effort: normal Respiratory: bilateral: CTA (anteriorly) - Cardiovascular Rhythm: regular Heart Sounds: Present: S1 & S2 - Abdominal General gastrointestinal: Present: soft, non-tender Results - Labs CBC & Chem 7: 06/14/20 13:17 06/16/20 04:36 Labs: Abnormal lab results 06/15/20 06/15/20 06/16/20 Range/Units 21:26 23:06 04:36 Sodium 151 H (137-145) mmol/L Chloride 110.7 H (98-107) mmol/L BUN 19 H (7-17) mg/dL Creatinine 1.4 H (0.6-1.2) mg/dL Glucose 420 H (65-100) mg/dL POC Glucose 352 H 404 H (70-105) mg/dL AST 90 H (5-40) units/L ALT 91 H (7-56) units/L 06/16/20 06/16/20 Range/Units 09:33 16:45 Sodium (137-145) mmol/L Chloride (98-107) mmol/L BUN (7-17) mg/dL Creatinine (0.6-1.2) mg/dL Glucose (65-100) mg/dL POC Glucose 442 H 476 H (70-105) mg/dL AST (5-40) units/L ALT (7-56) units/L - Imaging and Cardiology US - abdomen: report reviewed (Fatty liver, heterogenous texture) Assessment and Plan 1. Abnormal LFTs - most c/w ESPARZA. No evidence of cirrhosis. Hepatitis serologies negative. - will check for hemochromatosis, Anastacio's disease, autoimmune, but doubt. - o/w lifestyle changes, DM control, and outpatient follow up.
[2020-06-16] MEDS: SODIUM CHLORIDE 0.9% 1000 ML 1,000 ML IV SCH (18:48)
[2020-06-16 20:58] LABS: BUN/Creatinine Ratio 13; Blood Urea Nitrogen 16 mg/dL (7-17); Calcium 9.2 mg/dL (8.4-10.2); Hemolysis Index 100
[2020-06-16 21:01] LABS: Iron 119 ug/dL (37-170); Total Iron Binding Capacity 310 mcg/dL (250-450)
[2020-06-16] MEDS ORDERED: INSULIN GLARGINE 100 UNITS/ML SUB-Q SCH ×3 (22:00)
[2020-06-16] MEDS: ENOXAPARIN 40 MG/0.4 ML INJ SUB-Q SCH (22:03)
[2020-06-17] MEDS: SODIUM CHLORIDE 0.9% 1000 ML 1,000 ML IV SCH ×2 (04:44→18:40)
[2020-06-17] MEDS: INSULIN LISPRO 100 UNIT/ML SUB-Q SCH ×9 (08:00→22:31)
[2020-06-17] MEDS ORDERED: INSULIN LISPRO 100 UNIT/ML SUB-Q SCH (08:22)
[2020-06-17] MEDS ORDERED: SODIUM CHLORIDE 0.9% 1000 ML 1,000 ML IV ONE ×2 (08:22→16:30)
--- NOTE | 2020-06-17 09:13 | Progress Note ---
Assessment and Plan Assessment and plan: 30-year-old -[place] female who presents with altered mental status in the context of DKA Plan: Diabetic ketoacidosis DKA protocol initiated in the ICU, patient transferred to telemetry Diabetic diet Schedule insulin with insulin sliding scale Patient will need insulin at the time of discharge. Diabetes mellitus type 2, with hyperglycemia, not insulin-dependent new diagnosis A1c is 15.6. Making adjustments to insulin Acute kidney injury Could be the patient's baseline due to uncontrolled diabetes Fluids Elevated LFTs Gastroenterology consulted, no intervention required Abdominal ultrasound showing hepatocellular process such as hepatitis. Possibly severe hepatic steatosis. Most likely secondary to obesity. Hepatitis panel negative Dyslipidemia Statin Hyponatremia Continue fluids Intermittent asthma Continue Breo Not in acute asthma exacerbation at this time. Morbid obesity Lifestyle change Hyperkalemia secondary to DKA Fluids CODE STATUS: Full History Interval history: Patient seen and examined, no confusion, has mild nausea. Is able to tolerate food. Blood glucose needs better control, as discussed with the nurse pertaining to the plan. Hospitalist Physical - Physical exam Narrative exam: General appearance: Present: Obese, no acute distress, well-nourished - EENT Eyes: Present: PERRL, EOM intact ENT: hearing intact, clear oral mucosa - Respiratory Respiratory effort: normal Respiratory: bilateral: CTA, negative: rales, rhonchi, wheezing - Cardiovascular Rhythm: regular Heart Sounds: Present: S1 & S2. Absent: rub, click - Extremities Extremities: no ischemia, No edema, normal temperature, normal color, Full ROM - Abdominal General gastrointestinal: soft, non-tender, non-distended, normal bowel sounds - Integumentary Integumentary: Present: clear, warm, dry, normal turgor - Neurologic Neurologic: CNII-XII intact, no focal deficits, moves all extremities, no confusion - Constitutional Vitals: Temp Pulse Resp BP Pulse Ox 98.7 F 88 18 122/73 100 06/17/20 03:41 06/17/20 03:41 06/17/20 03:41 06/17/20 03:41 06/17/20 03:41 HEART Score - HEART Score Troponin: Troponin T < 0.010 ng/mL (0.00-0.029) 06/14/20 15:43 Results - Labs CBC & Chem 7: 06/14/20 13:17 06/16/20 20:05 Labs: Laboratory Last Values WBC 10.3 K/mm3 (4.5-11.0) 06/14/20 13:17 RBC 4.77 M/mm3 (3.65-5.03) 06/14/20 13:17 Hgb 13.9 gm/dl (10.1-14.3) 06/14/20 13:17 Hct 54.3 % (30.3-42.9) H 06/14/20 13:17 MCV 114 fl (79-97) H 06/14/20 13:17 MCH 29 pg (28-32) 06/14/20 13:17 MCHC 26 % (30-34) L 06/14/20 13:17 RDW 15.6 % (13.2-15.2) H 06/14/20 13:17 Plt Count 389 K/mm3 (140-440) 06/14/20 13:17 Lymph % (Auto) 6.8 % (13.4-35.0) L 06/14/20 13:17 [place] % (Auto) 12.6 % (0.0-7.3) H 06/14/20 13:17 Eos % (Auto) 0.0 % (0.0-4.3) 06/14/20 13:17 Baso % (Auto) 0.2 % (0.0-1.8) 06/14/20 13:17 Lymph # (Auto) 0.7 K/mm3 (1.2-5.4) L 06/14/20 13:17 [place] # (Auto) 1.3 K/mm3 (0.0-0.8) H 06/14/20 13:17 Eos # (Auto) 0.0 K/mm3 (0.0-0.4) 06/14/20 13:17 Baso # (Auto) 0.0 K/mm3 (0.0-0.1) 06/14/20 13:17 Seg Neutrophils % 80.4 % (40.0-70.0) H 06/14/20 13:17 Seg Neutrophils # 8.3 K/mm3 (1.8-7.7) H 06/14/20 13:17 VBG pH 7.125 (7.320-7.420) L* 06/14/20 13:13 Sodium 143 mmol/L (137-145) D 06/16/20 20:05 Potassium 5.3 mmol/L (3.6-5.0) H D 06/16/20 20:05 Chloride 102.6 mmol/L (98-107) 06/16/20 20:05 Carbon Dioxide 19 mmol/L (22-30) L 06/16/20 20:05 Anion Gap 27 mmol/L 06/16/20 20:05 BUN 16 mg/dL (7-17) 06/16/20 20:05 Creatinine 1.2 mg/dL (0.6-1.2) 06/16/20 20:05 Estimated GFR > 60 ml/min 06/16/20 20:05 BUN/Creatinine Ratio 13 % 06/16/20 20:05 Glucose 491 mg/dL (65-100) H 06/16/20 20:05 POC Glucose 436 mg/dL (70-105) H 06/16/20 20:34 Hemoglobin A1c 15.6 % (4-6) H 06/14/20 16:36 Lactic Acid 1.90 mmol/L (0.7-2.0) 06/14/20 15:43 Calcium 9.2 mg/dL (8.4-10.2) 06/16/20 20:05 Phosphorus 3.60 mg/dL (2.5-4.5) 06/14/20 15:43 Magnesium 3.20 mg/dL (1.7-2.3) H 06/14/20 15:43 Iron 119 ug/dL (37-170) 06/16/20 20:05 TIBC 310 mcg/dL (250-450) 06/16/20 20:05 Ferritin 255.4 ng/mL (10.0-200.0) H 06/16/20 20:05 Total Bilirubin 0.30 mg/dL (0.1-1.2) 06/16/20 04:36 Direct Bilirubin < 0.2 mg/dL (0-0.2) 06/15/20 05:09 Indirect Bilirubin 0.1 mg/dL 06/15/20 05:09 AST 90 units/L (5-40) H 06/16/20 04:36 ALT 91 units/L (7-56) H 06/16/20 04:36 Alkaline Phosphatase 129 units/L (35-129) 06/16/20 04:36 Troponin T < 0.010 ng/mL (0.00-0.029) 06/14/20 15:43 Total Protein 7.7 g/dL (6.3-8.2) 06/16/20 04:36 Albumin 3.9 g/dL (3.9-5) 06/16/20 04:36 Albumin/Globulin Ratio 1.0 % 06/16/20 04:36 Triglycerides 287 mg/dL (2-149) H 06/14/20 15:43 Cholesterol 237 mg/dL (50-199) H 06/14/20 15:43 LDL Cholesterol Direct 171 mg/dL (50-130) H 06/14/20 15:43 HDL Cholesterol 50 mg/dL (40-59) 06/14/20 15:43 Cholesterol/HDL Ratio 4.74 % 06/14/20 15:43 Lipase 35 units/L (13-60) 06/14/20 13:13 TSH 2.720 mlU/mL (0.270-4.200) 06/14/20 13:13 HCG, Qual Negative (Negative) 06/14/20 15:43 Urine Color Straw (Yellow) 06/14/20 Unknown Urine Turbidity Clear (Clear) 06/14/20 Unknown Urine pH 5.0 (5.0-7.0) 06/14/20 Unknown Ur Specific [place] 1.023 (1.003-1.030) 06/14/20 Unknown Urine Protein 30 mg/dl mg/dL (Negative) 06/14/20 Unknown Urine Glucose (UA) >=500 mg/dL (Negative) 06/14/20 Unknown Urine Ketones 20 mg/dL (Negative) 06/14/20 Unknown Urine Blood Mod (Negative) 06/14/20 Unknown Urine Nitrite Neg (Negative) 06/14/20 Unknown Urine Bilirubin Neg (Negative) 06/14/20 Unknown Urine Urobilinogen < 2.0 mg/dL (<2.0) 06/14/20 Unknown Ur Leukocyte Esterase Neg (Negative) 06/14/20 Unknown Urine WBC (Auto) < 1.0 /HPF (0.0-6.0) 06/14/20 Unknown Urine RBC (Auto) < 1.0 /HPF (0.0-6.0) 06/14/20 Unknown Urine Mucus Few /HPF 06/14/20 Unknown Urine HCG, Qual Negative (Negative) 06/14/20 Unknown Salicylates < 0.3 mg/dL (2.8-20.0) L 06/14/20 13:13 Urine Opiates Screen Presumptive negative 06/14/20 Unknown Urine Methadone Screen Presumptive negative 06/14/20 Unknown Acetaminophen 5.0 ug/mL (10.0-30.0) L 06/14/20 13:13 Ur Barbiturates Screen Presumptive negative 06/14/20 Unknown Ur Phencyclidine Scrn Presumptive negative 06/14/20 Unknown Ur Amphetamines Screen Presumptive negative 06/14/20 Unknown U Benzodiazepines Scrn Presumptive negative 06/14/20 Unknown Urine Cocaine Screen Presumptive negative 06/14/20 Unknown U Marijuana (THC) Screen Presumptive negative 06/14/20 Unknown Drugs of Abuse Note Disclamer 06/14/20 Unknown Plasma/Serum Alcohol < 0.01 % (0-0.07) 06/14/20 13:13 Hepatitis A IgM Ab Non-reactive (NonReactive) 06/14/20 15:43 Hep Bs Antigen Non-reactive (Negative) 06/14/20 15:43 Hep B Core IgM Ab Non-reactive (NonReactive) 06/14/20 15:43 Hepatitis C Antibody Non-reactive (NonReactive) 06/14/20 15:43 Ramirez/IV: Voiding Method Toilet IV Catheter Type [Left Hand] Peripheral IV IV Catheter Type [Right INT / Saline Lock Antecubital] Active Medications - Current Medications Current Medications: Generic Name Dose Route Start Last Admin Trade Name Freq PRN Reason Stop Dose Admin Dextrose 0 ml 06/14/20 15:47 Dextrose 50% In Water (25gm) 50 Ml Syringe IV Q30MIN PRN Hypoglycemia Protocol Enoxaparin Sodium 40 mg 06/14/20 22:00 06/16/20 22:03 Enoxaparin 40 Mg/0.4 Ml Inj SUB-Q 40 mg QDAY@2200 [facility] Administration Protocol Sodium Chloride 1,000 mls @ 100 mls/hr 06/16/20 18:30 06/17/20 04:44 Nacl 0.9% 1000 Ml IV 100 mls/hr DIRECT [facility] Administration Insulin Glargine 25 units 06/16/20 22:00 06/16/20 22:03 Insulin Glargine 100 Units/Ml SUB-Q 25 units QHS [facility] Administration Insulin Human Lispro 0 unit 06/17/20 11:30 Insulin Lispro 100 Unit/Ml SUB-Q ACHS [facility] Protocol Insulin Human Lispro 15 unit 06/17/20 11:30 Insulin Lispro 100 Unit/Ml SUB-Q AC [facility] Miscellaneous Medication 1 puff 06/17/20 10:00 Fluticasone/Vilanterol [Breo Ellipta 200-25 Mcg Inh] INHALATION QDAY [facility] Morphine Sulfate 2 mg 06/14/20 15:47 Morphine 2 Mg/1 Ml Inj IV Q4H PRN Pain, Moderate (4-6) Ondansetron HCl 4 mg 06/14/20 15:47 06/15/20 13:07 Ondansetron 4 Mg/2 Ml Inj IV 4 mg Q8H PRN Administration Nausea And Vomiting Sodium Chloride 10 ml 06/14/20 15:47 06/16/20 22:06 Sodium Chloride 0.9% 10 Ml Flush Syringe IV 10 ml PRN PRN Administration LINE FLUSH Nutrition/Malnutrition Assess - Dietary Evaluation Nutrition/Malnutrition Findings: Nutrition Notes Start: 06/15/20 13:21 Freq: Status: Active Protocol: Document 06/15/20 13:55 AT (Rec: 06/15/20 14:08 AT [email or web address]) Co-Sign 06/15/20 13:55 NHALL Nutrition Notes Need for Assessment generated from: MD Order Initial or Follow up Brief Note Current Diagnosis Diabetes Other Pertinent Diagnosis DKA Current Diet Consistent CHO Subjective/Other Information MD consult for diet education. Pt showed readiness, but then ended session due to increased thirst. Fork Lift Mechanic told pt how to contact nutrition staff. Will follow up for confirmation of understanding. #1 Nutrition Diagnosis Food and nutrition-related knowledge deficit Etiology newly diagnosed DM As Evidenced by Signs and Symptoms pt admitted with DKA Nutrition Intervention Teaching Recipient Patient Learning Readiness Fair Teaching Methods Discussion,Handout Education Handouts Provided Carb Counting for Diabetes Patients Barriers to Learning Emotional RD phone number provided No Patient aware of follow up options Yes Goal #1 Adhere to Consistent CHO diet Goal #2 Improve blood sugar control Anticipated Discharge Needs: Consistent CHO Follow-Up By: 06/20/20 Additional Comments F/U for diet education needs
[2020-06-17 09:14] LABS: Alanine Aminotransferase 83 units/L (7-56); Albumin 3.8 g/dL (3.9-5); BUN/Creatinine Ratio 13; Blood Urea Nitrogen 14 mg/dL (7-17); Calcium 8.9 mg/dL (8.4-10.2); Hemolysis Index 4
[2020-06-17] MEDS ORDERED: [UNRECOGNIZED DRUG - OTHER] INHALATION SCH (10:00)
--- NOTE | 2020-06-17 11:48 | Gastroenterology Progress Note ---
Assessment and Plan - Patient Problems (1) Elevated liver enzymes Current Visit: Yes Status: Acute Plan to address problem: - Serologies negative, and improved after control of DKA. - OK to d/c home per our service, with further w/u as an outpatient. - Discussed ESPARZA/fatty liver with patient, and that she must commit to weight loss/DM control/low starch diet as outpatient. Subjective Date of service: 06/17/20 Principal diagnosis: Abnormal liver enzymes Interval history: The patient feels well without N/V/abdominal pain. Objective - Constitutional Vitals: Temp Pulse Resp BP Pulse Ox 98.7 F 88 18 122/73 99 06/17/20 03:41 06/17/20 03:41 06/17/20 03:41 06/17/20 03:41 06/17/20 10:00 General appearance: no acute distress - Respiratory Respiratory effort: normal Respiratory: bilateral: CTA - Cardiovascular Rhythm: regular Heart Sounds: Present: S1 & S2 - Gastrointestinal General gastrointestinal: Present: soft, non-tender, non-distended - Labs CBC & Chem 7: 06/14/20 13:17 06/17/20 08:33 Labs: Laboratory Results - last 24 hr 06/16/20 06/16/20 06/16/20 16:45 20:05 20:05 Sodium 143 D Potassium 5.3 H D Chloride 102.6 Carbon Dioxide 19 L Anion Gap 27 BUN 16 Creatinine 1.2 Estimated GFR > 60 BUN/Creatinine Ratio 13 Glucose 491 H POC Glucose 476 H Calcium 9.2 Iron 119 TIBC 310 Ferritin Total Bilirubin AST ALT Alkaline Phosphatase Total Protein Albumin Albumin/Globulin Ratio 06/16/20 06/16/20 06/17/20 20:05 20:34 07:44 Sodium Potassium Chloride Carbon Dioxide Anion Gap BUN Creatinine Estimated GFR BUN/Creatinine Ratio Glucose POC Glucose 436 H 398 H Calcium Iron TIBC Ferritin 255.4 H Total Bilirubin AST ALT Alkaline Phosphatase Total Protein Albumin Albumin/Globulin Ratio 06/17/20 08:33 Sodium 140 Potassium 4.7 Chloride 102.6 Carbon Dioxide 16 L Anion Gap 26 BUN 14 Creatinine 1.1 Estimated GFR > 60 BUN/Creatinine Ratio 13 Glucose 493 H POC Glucose Calcium 8.9 Iron TIBC Ferritin Total Bilirubin 0.40 AST 75 H ALT 83 H Alkaline Phosphatase 118 Total Protein 7.2 Albumin 3.8 L Albumin/Globulin Ratio 1.1
[2020-06-17] MEDS ORDERED: SODIUM CHLORIDE 0.9% 1000 ML 1,000 ML IV SCH (14:15)
[2020-06-17 16:25] LABS: BUN/Creatinine Ratio 13; Blood Urea Nitrogen 13 mg/dL (7-17); Calcium 9.3 mg/dL (8.4-10.2); Hemolysis Index 2
[2020-06-17] MEDS ORDERED: INSULIN GLARGINE 100 UNITS/ML SUB-Q SCH (17:25)
[2020-06-17] MEDS: BUDESONIDE 0.5 MG/2 ML NEBU IH SCH (21:52)
[2020-06-17] MEDS: ARFORMOTEROL 15 MCG/2 ML NEBU IH SCH (21:53)
[2020-06-17] MEDS: hydrALAZINE 20 MG/1 ML INJ IV PRN (22:30)
[2020-06-17] MEDS: ENOXAPARIN 40 MG/0.4 ML INJ SUB-Q SCH (22:31)
[2020-06-18] MEDS: SODIUM CHLORIDE 0.9% 1000 ML 1,000 ML IV SCH (01:20)
[2020-06-18] MEDS ORDERED: LIP THERAPY VASELINE TP PRN (01:23)
[2020-06-18] MEDS: hydrALAZINE 20 MG/1 ML INJ IV PRN (04:48)
[2020-06-18 05:47] LABS: BUN/Creatinine Ratio 13; Blood Urea Nitrogen 10 mg/dL (7-17); Calcium 9.2 mg/dL (8.4-10.2); Hemolysis Index 68
[2020-06-18] MEDS: ARFORMOTEROL 15 MCG/2 ML NEBU IH SCH ×2 (07:33→20:59)
[2020-06-18] MEDS: BUDESONIDE 0.5 MG/2 ML NEBU IH SCH ×2 (07:33→20:59)
[2020-06-18] MEDS: INSULIN LISPRO 100 UNIT/ML SUB-Q SCH ×8 (08:00→22:09)
[2020-06-18] MEDS ORDERED: LACTATED RINGERS 1,000 ML IV ONE (10:00)
[2020-06-18] MEDS: INSULIN GLARGINE 100 UNITS/ML SUB-Q SCH ×2 (10:09→22:09)
[2020-06-18] MEDS: LISINOPRIL 10 MG TAB PO SCH (10:09)
--- NOTE | 2020-06-18 10:35 | Progress Note ---
Assessment and Plan Assessment and plan: 30-year-old -Citizen Of [place] female who presents with altered mental status in the context of DKA Plan: Diabetic ketoacidosis DKA protocol initiated in the ICU, patient transferred to telemetry Diabetic diet Schedule insulin with insulin sliding scale Patient will need insulin at the time of discharge. Diabetes mellitus type 2, with hyperglycemia, not insulin-dependent new diagnosis A1c is 15.6. Blood glucose very difficult to control We will start Lantus twice daily, Humalog AC, make adjustments as necessary Patient will need endocrine follow-up in the outpatient setting Anion gap metabolic acidosis Gap opened as soon as patient was transferred from the ICU Fluids, change to lactated Ringer's from NS, monitor potassium closely Blood glucose needs better control Most recent ABG from 06/17/2020 does not show acidosis, does not meet criteria for ICU Acute kidney injury secondary to dehydration Fluids Elevated LFTs Gastroenterology consulted, no intervention required Abdominal ultrasound showing hepatocellular process such as hepatitis. Possibly severe hepatic steatosis. Most likely secondary to obesity. Hepatitis panel negative Dyslipidemia Statin Hyponatremia Continue fluids Intermittent asthma Continue Breo Not in acute asthma exacerbation at this time. Morbid obesity Lifestyle change Hyperkalemia secondary to DKA Fluids CODE STATUS: Full DVT prophylaxis: Lovenox History Interval history: Patient in no acute distress, no confusion, no chest pain or shortness of breath. Patient states that she is very thirsty. Spoke with the nurse, patient blood pressure was elevated due to fluids. Blood glucose continues to be in the 400s. Hospitalist Physical - Physical exam Narrative exam: General appearance: Present: Obese, no acute distress, well-nourished - EENT Eyes: Present: PERRL, EOM intact ENT: hearing intact, clear oral mucosa - Respiratory Respiratory effort: normal Respiratory: bilateral: CTA, negative: rales, rhonchi, wheezing - Cardiovascular Rhythm: regular Heart Sounds: Present: S1 & S2. Absent: rub, click - Extremities Extremities: no ischemia, No edema, normal temperature, normal color, Full ROM - Abdominal General gastrointestinal: soft, non-tender, non-distended, normal bowel sounds - Integumentary Integumentary: Present: clear, warm, dry, normal turgor - Neurologic Neurologic: CNII-XII intact, no focal deficits, moves all extremities, no confusion - Constitutional Vitals: Temp Pulse Resp BP Pulse Ox 98.3 F 116 H 18 162/84 96 01/31/21 07:38 06/18/20 07:38 06/18/20 07:38 06/18/20 07:38 06/18/20 07:38 General appearance: Present: no acute distress, obese HEART Score - HEART Score Troponin: Troponin T < 0.010 ng/mL (0.00-0.029) 06/14/20 15:43 Results - Labs CBC & Chem 7: 06/14/20 13:17 06/18/20 04:00 Labs: Laboratory Last Values WBC 10.3 K/mm3 (4.5-11.0) 06/14/20 13:17 RBC 4.77 M/mm3 (3.65-5.03) 06/14/20 13:17 Hgb 13.9 gm/dl (10.1-14.3) 06/14/20 13:17 Hct 54.3 % (30.3-42.9) H 06/14/20 13:17 MCV 114 fl (79-97) H 06/14/20 13:17 MCH 29 pg (28-32) 06/14/20 13:17 MCHC 26 % (30-34) L 06/14/20 13:17 RDW 15.6 % (13.2-15.2) H 06/14/20 13:17 Plt Count 389 K/mm3 (140-440) 06/14/20 13:17 Lymph % (Auto) 6.8 % (13.4-35.0) L 06/14/20 13:17 [place] % (Auto) 12.6 % (0.0-7.3) H 06/14/20 13:17 Eos % (Auto) 0.0 % (0.0-4.3) 06/14/20 13:17 Baso % (Auto) 0.2 % (0.0-1.8) 06/14/20 13:17 Lymph # (Auto) 0.7 K/mm3 (1.2-5.4) L 06/14/20 13:17 [place] # (Auto) 1.3 K/mm3 (0.0-0.8) H 06/14/20 13:17 Eos # (Auto) 0.0 K/mm3 (0.0-0.4) 06/14/20 13:17 Baso # (Auto) 0.0 K/mm3 (0.0-0.1) 06/14/20 13:17 Seg Neutrophils % 80.4 % (40.0-70.0) H 06/14/20 13:17 Seg Neutrophils # 8.3 K/mm3 (1.8-7.7) H 06/14/20 13:17 ABG pH 7.36 (7.320-7.450) 06/17/20 16:10 POC ABG pCO2 34.9 mmHg (32.0-48.0) 06/17/20 16:10 POC ABG pO2 87.5 mmHg (83-108) 06/17/20 16:10 POC ABG HCO3 19.3 06/17/20 16:10 POC ABG Base Excess -5.4 06/17/20 16:10 ABG Hemoglobin 13.5 (12.0-17.5) 06/17/20 16:10 ABG Oxyhemoglobin 96.1 (94-98) 06/17/20 16:10 ABG Methemoglobin 0.3 (0.0-1.5) 06/17/20 16:10 ABG Sodium 142.0 mmol/L (136.0-145.0) 06/17/20 16:10 ABG Potassium 4.2 mmol/L (3.40-4.50) 06/17/20 16:10 ABG Chloride 107.0 mmol/L (98-107) 06/17/20 16:10 ABG Glucose 396 mg/dL (65-95) H 06/17/20 16:10 VBG pH 7.125 (7.320-7.420) L* 06/14/20 13:13 Carboxyhemoglobin 0.6 (0.5-1.5) 06/17/20 16:10 FiO2 21 06/17/20 16:10 Sodium 142 mmol/L (137-145) 06/18/20 04:00 Potassium 4.3 mmol/L (3.6-5.0) 06/18/20 04:00 Chloride 105.1 mmol/L (98-107) 06/18/20 04:00 Carbon Dioxide 17 mmol/L (22-30) L 06/18/20 04:00 Anion Gap 24 mmol/L 06/18/20 04:00 BUN 10 mg/dL (7-17) 06/18/20 04:00 Creatinine 0.8 mg/dL (0.6-1.2) 06/18/20 04:00 Estimated GFR > 60 ml/min 06/18/20 04:00 BUN/Creatinine Ratio 13 % 06/18/20 04:00 Glucose 315 mg/dL (65-100) H 06/18/20 04:00 POC Glucose 232 mg/dL (70-105) H 06/17/20 21:38 Hemoglobin A1c 15.6 % (4-6) H 06/14/20 16:36 Lactic Acid 1.90 mmol/L (0.7-2.0) 06/14/20 15:43 Calcium 9.2 mg/dL (8.4-10.2) 06/18/20 04:00 Phosphorus 3.60 mg/dL (2.5-4.5) 06/14/20 15:43 Magnesium 3.20 mg/dL (1.7-2.3) H 06/14/20 15:43 Iron 119 ug/dL (37-170) 06/16/20 20:05 TIBC 310 mcg/dL (250-450) 06/16/20 20:05 Ferritin 255.4 ng/mL (10.0-200.0) H 06/16/20 20:05 Total Bilirubin 0.40 mg/dL (0.1-1.2) 06/17/20 08:33 Direct Bilirubin < 0.2 mg/dL (0-0.2) 06/15/20 05:09 Indirect Bilirubin 0.1 mg/dL 06/15/20 05:09 AST 75 units/L (5-40) H 06/17/20 08:33 ALT 83 units/L (7-56) H 06/17/20 08:33 Alkaline Phosphatase 118 units/L (35-129) 06/17/20 08:33 Troponin T < 0.010 ng/mL (0.00-0.029) 06/14/20 15:43 Total Protein 7.2 g/dL (6.3-8.2) 06/17/20 08:33 Albumin 3.8 g/dL (3.9-5) L 06/17/20 08:33 Albumin/Globulin Ratio 1.1 % 06/17/20 08:33 Triglycerides 287 mg/dL (2-149) H 06/14/20 15:43 Cholesterol 237 mg/dL (50-199) H 06/14/20 15:43 LDL Cholesterol Direct 171 mg/dL (50-130) H 06/14/20 15:43 HDL Cholesterol 50 mg/dL (40-59) 06/14/20 15:43 Cholesterol/HDL Ratio 4.74 % 06/14/20 15:43 Lipase 35 units/L (13-60) 06/14/20 13:13 TSH 2.720 mlU/mL (0.270-4.200) 06/14/20 13:13 HCG, Qual Negative (Negative) 06/14/20 15:43 Arterial Blood Glucose 396 mg/dL (65-95) H 06/17/20 16:10 Arterial Blood Ionized Calcium 5.0 mg/dL (4.6-5.3) 06/17/20 16:10 Urine Color Straw (Yellow) 06/14/20 Unknown Urine Turbidity Clear (Clear) 06/14/20 Unknown Urine pH 5.0 (5.0-7.0) 06/14/20 Unknown Ur Specific [place] 1.023 (1.003-1.030) 06/14/20 Unknown Urine Protein 30 mg/dl mg/dL (Negative) 06/14/20 Unknown Urine Glucose (UA) >=500 mg/dL (Negative) 06/14/20 Unknown Urine Ketones 20 mg/dL (Negative) 06/14/20 Unknown Urine Blood Mod (Negative) 06/14/20 Unknown Urine Nitrite Neg (Negative) 06/14/20 Unknown Urine Bilirubin Neg (Negative) 06/14/20 Unknown Urine Urobilinogen < 2.0 mg/dL (<2.0) 06/14/20 Unknown Ur Leukocyte Esterase Neg (Negative) 06/14/20 Unknown Urine WBC (Auto) < 1.0 /HPF (0.0-6.0) 06/14/20 Unknown Urine RBC (Auto) < 1.0 /HPF (0.0-6.0) 06/14/20 Unknown Urine Mucus Few /HPF 06/14/20 Unknown Urine HCG, Qual Negative (Negative) 06/14/20 Unknown Salicylates < 0.3 mg/dL (2.8-20.0) L 06/14/20 13:13 Urine Opiates Screen Presumptive negative 06/14/20 Unknown Urine Methadone Screen Presumptive negative 06/14/20 Unknown Acetaminophen 5.0 ug/mL (10.0-30.0) L 06/14/20 13:13 Ur Barbiturates Screen Presumptive negative 06/14/20 Unknown Ur Phencyclidine Scrn Presumptive negative 06/14/20 Unknown Ur Amphetamines Screen Presumptive negative 06/14/20 Unknown U Benzodiazepines Scrn Presumptive negative 06/14/20 Unknown Urine Cocaine Screen Presumptive negative 06/14/20 Unknown U Marijuana (THC) Screen Presumptive negative 06/14/20 Unknown Drugs of Abuse Note Disclamer 06/14/20 Unknown Plasma/Serum Alcohol < 0.01 % (0-0.07) 06/14/20 13:13 Hepatitis A IgM Ab Non-reactive (NonReactive) 06/14/20 15:43 Hep Bs Antigen Non-reactive (Negative) 06/14/20 15:43 Hep B Core IgM Ab Non-reactive (NonReactive) 06/14/20 15:43 Hepatitis C Antibody Non-reactive (NonReactive) 06/14/20 15:43 Ramirez/IV: Voiding Method Toilet IV Catheter Type [Left Hand] Peripheral IV IV Catheter Type [Right INT / Saline Lock Antecubital] Active Medications - Current Medications Current Medications: Generic Name Dose Route Start Last Admin Trade Name Freq PRN Reason Stop Dose Admin Arformoterol Tartrate 15 mcg 06/17/20 20:00 06/18/20 07:33 Arformoterol 15 Mcg/2 Ml Nebu IH 15 mcg Q12HRT ARMAND Administration Budesonide 1 mg 06/17/20 20:00 06/18/20 07:33 Budesonide 0.5 Mg/2 Ml Nebu IH 1 mg Q12HRT ARMAND Administration Dextrose 0 ml 06/14/20 15:47 Dextrose 50% In Water (25gm) 50 Ml Syringe IV Q30MIN PRN Hypoglycemia Protocol Enoxaparin Sodium 40 mg 06/14/20 22:00 06/17/20 22:31 Enoxaparin 40 Mg/0.4 Ml Inj SUB-Q 40 mg QDAY@2200 ARMAND Administration Protocol Hydralazine HCl 10 mg 06/17/20 22:06 06/18/20 04:48 Hydralazine 20 Mg/1 Ml Inj IV 10 mg Q6H PRN Administration Hypertension Hydrophilic Ointment 1 applic 06/18/20 01:23 Lip Therapy Vaseline TP DIRECT PRN Dry Lips Lactated Ringer's 1,000 mls @ 125 mls/hr 06/18/20 09:45 Lactated Ringers IV DIRECT ARMAND Lactated Ringer's 1,000 mls @ 999 mls/hr 06/18/20 10:00 06/18/20 10:10 Lactated Ringers IV 06/18/20 11:00 999 mls/hr BOLUS ONE Administration Insulin Glargine 40 units 06/18/20 10:00 06/18/20 10:09 Insulin Glargine 100 Units/Ml SUB-Q 40 units BID ARMAND Administration Insulin Human Lispro 0 unit 06/17/20 11:30 06/18/20 08:00 Insulin Lispro 100 Unit/Ml SUB-Q 10 unit ACHS ARMAND Administration Protocol Insulin Human Lispro 20 unit 06/17/20 17:13 06/18/20 08:00 Insulin Lispro 100 Unit/Ml SUB-Q 20 unit AC ARMAND Administration Lisinopril 10 mg 06/18/20 10:00 06/18/20 10:09 Lisinopril 10 Mg Tab PO 10 mg QDAY ARMAND Administration Morphine Sulfate 2 mg 06/14/20 15:47 Morphine 2 Mg/1 Ml Inj IV Q4H PRN Pain, Moderate (4-6) Ondansetron HCl 4 mg 06/14/20 15:47 06/15/20 13:07 Ondansetron 4 Mg/2 Ml Inj IV 4 mg Q8H PRN Administration Nausea And Vomiting Sodium Chloride 10 ml 06/14/20 15:47 06/16/20 22:06 Sodium Chloride 0.9% 10 Ml Flush Syringe IV 10 ml PRN PRN Administration LINE FLUSH Nutrition/Malnutrition Assess - Dietary Evaluation Nutrition/Malnutrition Findings: Nutrition Notes Start: 06/15/20 13:21 Freq: Status: Active Protocol: Document 06/15/20 13:55 AT (Rec: 06/15/20 14:08 AT [email or web address]) Co-Sign 06/15/20 13:55 NHALL Nutrition Notes Need for Assessment generated from: MD Order Initial or Follow up Brief Note Current Diagnosis Diabetes Other Pertinent Diagnosis DKA Current Diet Consistent CHO Subjective/Other Information MD consult for diet education. Pt showed readiness, but then ended session due to increased thirst. Maintenance Team Member told pt how to contact nutrition staff. Will follow up for confirmation of understanding. #1 Nutrition Diagnosis Food and nutrition-related knowledge deficit Etiology newly diagnosed DM As Evidenced by Signs and Symptoms pt admitted with DKA Nutrition Intervention Teaching Recipient Patient Learning Readiness Fair Teaching Methods Discussion,Handout Education Handouts Provided Carb Counting for Diabetes Patients Barriers to Learning Emotional RD phone number provided No Patient aware of follow up options Yes Goal #1 Adhere to Consistent CHO diet Goal #2 Improve blood sugar control Anticipated Discharge Needs: Consistent CHO Follow-Up By: 06/20/20 Additional Comments F/U for diet education needs
[2020-06-18] MEDS: LACTATED RINGERS 1,000 ML IV SCH ×2 (14:00→23:26)
[2020-06-18 16:28] LABS: BUN/Creatinine Ratio 11; Blood Urea Nitrogen 9 mg/dL (7-17); Calcium 9.2 mg/dL (8.4-10.2); Hemolysis Index 10
[2020-06-18] MEDS ORDERED: INSULIN GLARGINE 100 UNITS/ML SUB-Q SCH (22:00)
[2020-06-18] MEDS: METOPROLOL TARTRATE 25 MG TAB PO SCH (22:08)
[2020-06-18] MEDS: ENOXAPARIN 40 MG/0.4 ML INJ SUB-Q SCH (22:08)
[2020-06-19 05:50] LABS: Blood Urea Nitrogen 8 mg/dL (7-17); Calcium 8.9 mg/dL (8.4-10.2); Hemolysis Index 10
[2020-06-19 05:51] LABS: BUN/Creatinine Ratio 11
[2020-06-19] MEDS ORDERED: POTASSIUM CHLORIDE ER 20 MEQ TAB PO NR (07:08)
[2020-06-19] MEDS: LACTATED RINGERS 1,000 ML IV SCH ×2 (08:11→17:12)
[2020-06-19] MEDS: ONDANSETRON 4 MG/2 ML INJ IV PRN (08:11)
[2020-06-19] MEDS: INSULIN LISPRO 100 UNIT/ML SUB-Q SCH ×7 (08:23→22:39)
[2020-06-19] MEDS: BUDESONIDE 0.5 MG/2 ML NEBU IH SCH ×2 (08:25→20:40)
[2020-06-19] MEDS: ARFORMOTEROL 15 MCG/2 ML NEBU IH SCH ×2 (08:26→20:40)
[2020-06-19] MEDS ORDERED: LACTATED RINGERS 1,000 ML IV ONE (08:30)
[2020-06-19] MEDS: LISINOPRIL 10 MG TAB PO SCH (09:14)
[2020-06-19] MEDS: INSULIN GLARGINE 100 UNITS/ML SUB-Q SCH ×2 (09:15→22:38)
[2020-06-19] MEDS: METOPROLOL TARTRATE 25 MG TAB PO SCH ×2 (09:15→22:38)
[2020-06-19 17:42] LABS: BUN/Creatinine Ratio 11; Blood Urea Nitrogen 8 mg/dL (7-17); Calcium 8.9 mg/dL (8.4-10.2)
--- NOTE | 2020-06-19 18:51 | Progress Note ---
Assessment and Plan Assessment and plan: 30-year-old -[place] female who presents with altered mental status in the context of DKA Plan: Diabetic ketoacidosis DKA protocol initiated in the ICU, patient transferred to telemetry Diabetic diet Schedule insulin with insulin sliding scale Patient will need insulin at the time of discharge. Diabetes mellitus type 2, with hyperglycemia, not insulin-dependent new diagnosis A1c is 15.6. Blood glucose very difficult to control We will start Lantus twice daily, Humalog AC, make adjustments as necessary Patient will need endocrine follow-up in the outpatient setting Anion gap metabolic acidosis Gap opened as soon as patient was transferred from the ICU Fluids, change to lactated Ringer's from NS Blood glucose needs better control Most recent ABG from 06/17/2020 does not show acidosis, does not meet criteria for ICU Acute kidney injury secondary to dehydration Fluids Elevated LFTs Gastroenterology consulted, no intervention required Abdominal ultrasound showing hepatocellular process such as hepatitis. Possibly severe hepatic steatosis. Most likely secondary to obesity. Hepatitis panel negative Dyslipidemia Statin Hyponatremia Continue fluids Intermittent asthma Continue Breo Not in acute asthma exacerbation at this time. Morbid obesity Lifestyle change Hyperkalemia secondary to DKA Fluids CODE STATUS: Full DVT prophylaxis: Lovenox Disposition: Patient needs diabetic education, continue fluids, gap closing, patient will need to be discharged on Lantus Solostar pens and NovoLog pens including pen needles. I called [facility] myself and these are covered by the patient's insurance. Patient will need diabetic supplies such as glucometer, glucometer strips, lancets. Spoke with father and they will arrange for the patient to see his a primary care and obtain a referral to tape sewer. History Interval history: Patient doing well, tolerating fluids, blood glucose improving, gap closing. Patient without any shortness of breath or chest pain, still feels a bit thirsty . Hospitalist Physical - Physical exam Narrative exam: General appearance: Present: Obese, no acute distress, well-nourished - EENT Eyes: Present: PERRL, EOM intact ENT: hearing intact, clear oral mucosa - Respiratory Respiratory effort: normal Respiratory: bilateral: CTA, negative: rales, rhonchi, wheezing - Cardiovascular Rhythm: regular Heart Sounds: Present: S1 & S2. Absent: rub, click - Extremities Extremities: no ischemia, No edema, normal temperature, normal color, Full ROM - Abdominal General gastrointestinal: soft, non-tender, non-distended, normal bowel sounds - Integumentary Integumentary: Present: clear, warm, dry, normal turgor - Neurologic Neurologic: CNII-XII intact, no focal deficits, moves all extremities, no confusion - Constitutional Vitals: Temp Pulse Resp BP Pulse Ox 98.1 F 102 H 48 H 139/91 99 06/19/20 08:08 06/19/20 10:00 06/19/20 14:43 06/19/20 14:43 06/19/20 08:08 General appearance: Present: no acute distress, obese HEART Score - HEART Score Troponin: Troponin T < 0.010 ng/mL (0.00-0.029) 06/14/20 15:43 Results - Labs CBC & Chem 7: 06/14/20 13:17 06/19/20 16:49 Labs: Laboratory Last Values WBC 10.3 K/mm3 (4.5-11.0) 06/14/20 13:17 RBC 4.77 M/mm3 (3.65-5.03) 06/14/20 13:17 Hgb 13.9 gm/dl (10.1-14.3) 06/14/20 13:17 Hct 54.3 % (30.3-42.9) H 06/14/20 13:17 MCV 114 fl (79-97) H 06/14/20 13:17 MCH 29 pg (28-32) 06/14/20 13:17 MCHC 26 % (30-34) L 06/14/20 13:17 RDW 15.6 % (13.2-15.2) H 06/14/20 13:17 Plt Count 389 K/mm3 (140-440) 06/14/20 13:17 Lymph % (Auto) 6.8 % (13.4-35.0) L 06/14/20 13:17 [place] % (Auto) 12.6 % (0.0-7.3) H 06/14/20 13:17 Eos % (Auto) 0.0 % (0.0-4.3) 06/14/20 13:17 Baso % (Auto) 0.2 % (0.0-1.8) 06/14/20 13:17 Lymph # (Auto) 0.7 K/mm3 (1.2-5.4) L 06/14/20 13:17 [place] # (Auto) 1.3 K/mm3 (0.0-0.8) H 06/14/20 13:17 Eos # (Auto) 0.0 K/mm3 (0.0-0.4) 06/14/20 13:17 Baso # (Auto) 0.0 K/mm3 (0.0-0.1) 06/14/20 13:17 Seg Neutrophils % 80.4 % (40.0-70.0) H 06/14/20 13:17 Seg Neutrophils # 8.3 K/mm3 (1.8-7.7) H 06/14/20 13:17 ABG pH 7.36 (7.320-7.450) 06/17/20 16:10 POC ABG pCO2 34.9 mmHg (32.0-48.0) 06/17/20 16:10 POC ABG pO2 87.5 mmHg (83-108) 06/17/20 16:10 POC ABG HCO3 19.3 06/17/20 16:10 POC ABG Base Excess -5.4 06/17/20 16:10 ABG Hemoglobin 13.5 (12.0-17.5) 06/17/20 16:10 ABG Oxyhemoglobin 96.1 (94-98) 06/17/20 16:10 ABG Methemoglobin 0.3 (0.0-1.5) 06/17/20 16:10 ABG Sodium 142.0 mmol/L (136.0-145.0) 06/17/20 16:10 ABG Potassium 4.2 mmol/L (3.40-4.50) 06/17/20 16:10 ABG Chloride 107.0 mmol/L (98-107) 06/17/20 16:10 ABG Glucose 396 mg/dL (65-95) H 06/17/20 16:10 VBG pH 7.125 (7.320-7.420) L* 06/14/20 13:13 Carboxyhemoglobin 0.6 (0.5-1.5) 06/17/20 16:10 FiO2 21 06/17/20 16:10 Sodium 141 mmol/L (137-145) 06/19/20 16:49 Potassium 4.2 mmol/L (3.6-5.0) 06/19/20 16:49 Chloride 105.1 mmol/L (98-107) 06/19/20 16:49 Carbon Dioxide 26 mmol/L (22-30) 06/19/20 16:49 Anion Gap 14 mmol/L 06/19/20 16:49 BUN 8 mg/dL (7-17) 06/19/20 16:49 Creatinine 0.7 mg/dL (0.6-1.2) 06/19/20 16:49 Estimated GFR > 60 ml/min 06/19/20 16:49 BUN/Creatinine Ratio 11 % 06/19/20 16:49 Glucose 288 mg/dL (65-100) H 06/19/20 16:49 POC Glucose 283 mg/dL (70-105) H 06/19/20 16:00 Hemoglobin A1c 15.6 % (4-6) H 06/14/20 16:36 Lactic Acid 1.90 mmol/L (0.7-2.0) 06/14/20 15:43 Calcium 8.9 mg/dL (8.4-10.2) 06/19/20 16:49 Phosphorus 3.60 mg/dL (2.5-4.5) 06/14/20 15:43 Magnesium 3.20 mg/dL (1.7-2.3) H 06/14/20 15:43 Iron 119 ug/dL (37-170) 06/16/20 20:05 TIBC 310 mcg/dL (250-450) 06/16/20 20:05 Ferritin 255.4 ng/mL (10.0-200.0) H 06/16/20 20:05 Total Bilirubin 0.40 mg/dL (0.1-1.2) 06/17/20 08:33 Direct Bilirubin < 0.2 mg/dL (0-0.2) 06/15/20 05:09 Indirect Bilirubin 0.1 mg/dL 06/15/20 05:09 AST 75 units/L (5-40) H 06/17/20 08:33 ALT 83 units/L (7-56) H 06/17/20 08:33 Alkaline Phosphatase 118 units/L (35-129) 06/17/20 08:33 Troponin T < 0.010 ng/mL (0.00-0.029) 06/14/20 15:43 Total Protein 7.2 g/dL (6.3-8.2) 06/17/20 08:33 Albumin 3.8 g/dL (3.9-5) L 06/17/20 08:33 Albumin/Globulin Ratio 1.1 % 06/17/20 08:33 Triglycerides 287 mg/dL (2-149) H 06/14/20 15:43 Cholesterol 237 mg/dL (50-199) H 06/14/20 15:43 LDL Cholesterol Direct 171 mg/dL (50-130) H 06/14/20 15:43 HDL Cholesterol 50 mg/dL (40-59) 06/14/20 15:43 Cholesterol/HDL Ratio 4.74 % 06/14/20 15:43 Lipase 35 units/L (13-60) 06/14/20 13:13 TSH 2.720 mlU/mL (0.270-4.200) 06/14/20 13:13 HCG, Qual Negative (Negative) 06/14/20 15:43 Arterial Blood Glucose 396 mg/dL (65-95) H 06/17/20 16:10 Arterial Blood Ionized Calcium 5.0 mg/dL (4.6-5.3) 06/17/20 16:10 Urine Color Straw (Yellow) 06/14/20 Unknown Urine Turbidity Clear (Clear) 06/14/20 Unknown Urine pH 5.0 (5.0-7.0) 06/14/20 Unknown Ur Specific [place] 1.023 (1.003-1.030) 06/14/20 Unknown Urine Protein 30 mg/dl mg/dL (Negative) 06/14/20 Unknown Urine Glucose (UA) >=500 mg/dL (Negative) 06/14/20 Unknown Urine Ketones 20 mg/dL (Negative) 06/14/20 Unknown Urine Blood Mod (Negative) 06/14/20 Unknown Urine Nitrite Neg (Negative) 06/14/20 Unknown Urine Bilirubin Neg (Negative) 06/14/20 Unknown Urine Urobilinogen < 2.0 mg/dL (<2.0) 06/14/20 Unknown Ur Leukocyte Esterase Neg (Negative) 06/14/20 Unknown Urine WBC (Auto) < 1.0 /HPF (0.0-6.0) 06/14/20 Unknown Urine RBC (Auto) < 1.0 /HPF (0.0-6.0) 06/14/20 Unknown Urine Mucus Few /HPF 06/14/20 Unknown Urine HCG, Qual Negative (Negative) 06/14/20 Unknown Salicylates < 0.3 mg/dL (2.8-20.0) L 06/14/20 13:13 Urine Opiates Screen Presumptive negative 06/14/20 Unknown Urine Methadone Screen Presumptive negative 06/14/20 Unknown Acetaminophen 5.0 ug/mL (10.0-30.0) L 06/14/20 13:13 Ur Barbiturates Screen Presumptive negative 06/14/20 Unknown Ur Phencyclidine Scrn Presumptive negative 06/14/20 Unknown Ur Amphetamines Screen Presumptive negative 06/14/20 Unknown U Benzodiazepines Scrn Presumptive negative 06/14/20 Unknown Urine Cocaine Screen Presumptive negative 06/14/20 Unknown U Marijuana (THC) Screen Presumptive negative 06/14/20 Unknown Drugs of Abuse Note Disclamer 06/14/20 Unknown Plasma/Serum Alcohol < 0.01 % (0-0.07) 06/14/20 13:13 Hepatitis A IgM Ab Non-reactive (NonReactive) 06/14/20 15:43 Hep Bs Antigen Non-reactive (Negative) 06/14/20 15:43 Hep B Core IgM Ab Non-reactive (NonReactive) 06/14/20 15:43 Hepatitis C Antibody Non-reactive (NonReactive) 06/14/20 15:43 Ramirez/IV: Voiding Method Toilet IV Catheter Type [Left Hand] Peripheral IV IV Catheter Type [Right INT / Saline Lock Antecubital] Active Medications - Current Medications Current Medications: Generic Name Dose Route Start Last Admin Trade Name Freq PRN Reason Stop Dose Admin Arformoterol Tartrate 15 mcg 06/17/20 20:00 06/19/20 08:26 Arformoterol 15 Mcg/2 Ml Nebu IH 15 mcg Q12HRT ARMAND Administration Budesonide 1 mg 06/17/20 20:00 06/19/20 08:25 Budesonide 0.5 Mg/2 Ml Nebu IH 1 mg Q12HRT ARMAND Administration Dextrose 0 ml 06/14/20 15:47 Dextrose 50% In Water (25gm) 50 Ml Syringe IV Q30MIN PRN Hypoglycemia Protocol Enoxaparin Sodium 40 mg 06/14/20 22:00 06/18/20 22:08 Enoxaparin 40 Mg/0.4 Ml Inj SUB-Q 40 mg QDAY@2200 ARMAND Administration Protocol Hydralazine HCl 10 mg 06/17/20 22:06 06/18/20 04:48 Hydralazine 20 Mg/1 Ml Inj IV 10 mg Q6H PRN Administration Hypertension Hydrophilic Ointment 1 applic 06/18/20 01:23 Lip Therapy Vaseline TP DIRECT PRN Dry Lips Lactated Ringer's 1,000 mls @ 135 mls/hr 06/18/20 09:45 06/19/20 17:12 Lactated Ringers IV 125 mls/hr DIRECT ARMAND Administration Insulin Glargine 55 units 06/19/20 18:36 Insulin Glargine 100 Units/Ml SUB-Q BID ARMAND Insulin Human Lispro 0 unit 06/17/20 11:30 06/19/20 17:05 Insulin Lispro 100 Unit/Ml SUB-Q 6 unit ACHS ARMAND Administration Protocol Insulin Human Lispro 20 unit 06/19/20 16:30 06/19/20 17:05 Insulin Lispro 100 Unit/Ml SUB-Q 20 unit AC ARMAND Administration Lisinopril 10 mg 06/18/20 10:00 06/19/20 09:14 Lisinopril 10 Mg Tab PO 10 mg QDAY ARMAND Administration Metoprolol Tartrate 12.5 mg 06/18/20 22:00 06/19/20 09:15 Metoprolol Tartrate 25 Mg Tab PO 12.5 mg BID ARMAND Administration Morphine Sulfate 2 mg 06/14/20 15:47 06/19/20 12:06 Morphine 2 Mg/1 Ml Inj IV 2 mg Q4H PRN Administration Pain, Moderate (4-6) Ondansetron HCl 4 mg 06/14/20 15:47 06/19/20 08:11 Ondansetron 4 Mg/2 Ml Inj IV 4 mg Q8H PRN Administration Nausea And Vomiting Sodium Chloride 10 ml 06/14/20 15:47 06/19/20 08:12 Sodium Chloride 0.9% 10 Ml Flush Syringe IV 10 ml PRN PRN Administration LINE FLUSH Nutrition/Malnutrition Assess - Dietary Evaluation Nutrition/Malnutrition Findings: Nutrition Notes Start: 06/15/20 13:21 Freq: Status: Active Protocol: Document 06/15/20 13:55 AT (Rec: 06/15/20 14:08 AT [email or web address]) Co-Sign 06/15/20 13:55 NHALL Nutrition Notes Need for Assessment generated from: MD Order Initial or Follow up Brief Note Current Diagnosis Diabetes Other Pertinent Diagnosis DKA Current Diet Consistent CHO Subjective/Other Information MD consult for diet education. Pt showed readiness, but then ended session due to increased thirst. Apprentice told pt how to contact nutrition staff. Will follow up for confirmation of understanding. #1 Nutrition Diagnosis Food and nutrition-related knowledge deficit Etiology newly diagnosed DM As Evidenced by Signs and Symptoms pt admitted with DKA Nutrition Intervention Teaching Recipient Patient Learning Readiness Fair Teaching Methods Discussion,Handout Education Handouts Provided Carb Counting for Diabetes Patients Barriers to Learning Emotional RD phone number provided No Patient aware of follow up options Yes Goal #1 Adhere to Consistent CHO diet Goal #2 Improve blood sugar control Anticipated Discharge Needs: Consistent CHO Follow-Up By: 06/20/20 Additional Comments F/U for diet education needs
[2020-06-19] MEDS: ENOXAPARIN 40 MG/0.4 ML INJ SUB-Q SCH (22:38)
[2020-06-20] MEDS: LACTATED RINGERS 1,000 ML IV SCH ×2 (01:41→06:49)
[2020-06-20 07:35] LABS: Blood Urea Nitrogen 6 mg/dL (7-17); Calcium 8.7 mg/dL (8.4-10.2); Hemolysis Index 4
[2020-06-20] MEDS: ARFORMOTEROL 15 MCG/2 ML NEBU IH SCH ×2 (07:44→22:50)
[2020-06-20 07:55] LABS: BUN/Creatinine Ratio 10
[2020-06-20] MEDS: INSULIN LISPRO 100 UNIT/ML SUB-Q SCH ×6 (08:44→17:57)
[2020-06-20] MEDS: BUDESONIDE 0.5 MG/2 ML NEBU IH SCH ×3 (09:07→22:49)
--- NOTE | 2020-06-20 10:24 | Discharge Summary ---
Providers - Providers Date of Admission: 06/14/20 14:32 Attending physician: ARIELLA QUICK MD 06/14/20 19:47 Consult to Physician [CONS] Routine Comment: called answ. serv./ [place] Consulting Provider: DAVIDE CHAPARRO Physician Instructions: Reason For Exam: Elevated liver enzymes 06/20/20 07:00 Consult to Dietitian/Nutrition [CONS] Routine Physician Instructions: Education about diet and insulin Reason For Exam: Reason for Consult: New DM education Primary care physician: PREVENTION COORDINATOR Hospitalization Condition: Good Hospital course: 30-year-old -Citizen Of [place] female who presents with altered mental status in the context of DKA LEFT ARM SWELLING IMPROVING, NO FURTHER PAIN. PATIENT TO MONITOR AND RETURN TO ER IF WORSE WEIGHT LOSS COUNSELLING PROVIDED Plan: Diabetic ketoacidosis DKA protocol initiated in the ICU, patient transferred to telemetry Diabetic diet Schedule insulin with insulin sliding scale Patient will need insulin at the time of discharge. Diabetes mellitus type 2, with hyperglycemia, not insulin-dependent new diagnosis A1c is 15.6. Blood glucose very difficult to control We will start Lantus twice daily, Humalog AC, make adjustments as necessary Patient will need endocrine follow-up in the outpatient setting Anion gap metabolic acidosis Gap opened as soon as patient was transferred from the ICU Fluids, change to lactated Ringer's from Blood glucose needs better control Most recent ABG from 06/17/2020 does not show acidosis, does not meet criteria for ICU Acute kidney injury secondary to dehydration/Vasomotor nephropathy POA Fluids Elevated LFTs Gastroenterology consulted, no intervention required Abdominal ultrasound showing hepatocellular process such as hepatitis. Possibly severe hepatic steatosis. Most likely secondary to obesity. Hepatitis panel negative Dyslipidemia Statin Hyponatremia Continue fluids Intermittent asthma Continue Breo Not in acute asthma exacerbation at this time. Morbid obesity Lifestyle change Hyperkalemia secondary to DKA Fluids CODE STATUS: Full DVT prophylaxis: Lovenox Disposition: Patient needs diabetic education, continue fluids, gap closing, patient will need to be discharged on Lantus Solostar pens and NovoLog pens including pen needles. [facility] called [facility] myself and these are covered by the patient's insurance. Patient will need diabetic supplies such as glucometer, glucometer strips, lancets. Spoke with father and they will arrange for the patient to see his a primary care and obtain a referral to industrial technician. Patient doing well, tolerating fluids, blood glucose improving, gap closing. Patient without any shortness of breath or chest pain, still feels a bit t hirsty. : Disposition: DC-01 TO HOME OR SELFCARE Core Measure Documentation - Palliative Care Palliative Care/ Comfort Measures: Not Applicable Exam - Physical Exam Narrative exam: General appearance: Present: Obese, no acute distress, well-nourished - EENT Eyes: Present: PERRL, EOM intact ENT: hearing intact, clear oral mucosa - Respiratory Respiratory effort: normal Respiratory: bilateral: CTA, negative: rales, rhonchi, wheezing - Cardiovascular Rhythm: regular Heart Sounds: Present: S1 & S2. Absent: rub, click - Extremities Extremities: no ischemia, No edema, normal temperature, normal color, Full ROM - Abdominal General gastrointestinal: soft, non-tender, non-distended, normal bowel sounds - Integumentary Integumentary: Present: clear, warm, dry, normal turgor - Neurologic Neurologic: CNII-XII intact, no focal deficits, moves all extremities, no confusion - Constitutional Vitals: Temp Pulse Resp BP Pulse Ox 98.5 F 96 H 16 143/93 92 06/20/20 03:33 06/20/20 07:44 06/20/20 07:44 06/20/20 03:33 06/20/20 03:33 Plan Activity: advance as tolerated, fall precautions Diet: diabetic Special Instructions: record daily weights, record daily BP diary, record blood sugar diary Additional Instructions: follow with Pharmacy Clinical Specialist as discussed with patients father Follow up with: PRIMARY CARE,MD [Primary Care Provider] - 7 Days Forms: Work/School Release Form Prescriptions: Fluticasone/Vilanterol [Breo Ellipta 200-25 Mcg INH] 1 puff INHALATION QDAY #1 Insulin Glargine,Hum.rec.anlog [Lantus Solostar] 50 unit SQ BIDAC 30 Days ins uln.pen Metoprolol [Lopressor TAB] 12.5 mg PO BID #60 tablet Insulin Aspart (Nf) [NovoLOG Flexpen] 0 units SQ AC #30 pen lisinopriL [Zestril TAB] 10 mg PO QDAY #30 tablet Other Discharge Orders: Glucometer (Amb) Location: None Selected Glucometer supplies[Amb] Location: None Selected
[2020-06-20 10:47] VITALS: BP 139/84
[2020-06-20] MEDS: LISINOPRIL 10 MG TAB PO SCH (10:47)
[2020-06-20] MEDS: METOPROLOL TARTRATE 25 MG TAB PO SCH (10:47)
[2020-06-20] MEDS: INSULIN GLARGINE 100 UNITS/ML SUB-Q SCH (11:01)
[2020-06-22 12:36] LABS: ANA Screen, IFA Positive (Negative)
== END 2020-06-20 20:10 | disposition home or self-care (01) | DRG 637 ==
LOC: ED 13:03 → IMCU 14:32 → CC1 16:01 → 4A 06-16 00:11
PROVIDERS: ADMIT Internal Medicine Geriatric Medicine; ATTEND Internal Medicine
PROC: 4A033R1 Measurement of Arterial Saturation, Peripheral, Percutaneous Approach (ICD-10-PCS; principal; 2020-06-17)
DX: E11.10 Type 2 diabetes mellitus with ketoacidosis without coma (principal); N17.0 Acute kidney failure with tubular necrosis; Z68.43 Body mass index [BMI] 50.0-59.9, adult; E87.1 Hypo-osmolality and hyponatremia; E87.5 Hyperkalemia; E66.01 Morbid (severe) obesity due to excess calories; J45.909 Unspecified asthma, uncomplicated; Z79.4 Long term (current) use of insulin; E78.5 Hyperlipidemia, unspecified; R79.89 Other specified abnormal findings of blood chemistry; E86.0 Dehydration
CPT/HCPCS: 36415; 36600; 71045; 76705; 80048; 80053; 80061; 80074; 80076; 80307; 80320; 81001; 81025; 82140; 82390; 82728; 82805; 82947; 82962; 83036; 83550; 83690; 83735; 84100; 84443; 84484; 84703; 85025; 86038; 93005; 94640; 94760; 96365; 96375; 96376; G0378; G0480; J0360; J1650; J1815; J2270; J2405; J7030; J7120